=== PATIENT | female | born 1965 | race Caucasian/White ===

== ENCOUNTER 2016-03-10 16:13 | Outpatient (CLI) | payer MEDICARE, OTHER ==
[2015-02-24 14:12] VITALS: BP 162/71
[2016-03-10 16:39] LABS: APPEARANCE,URINE Cloudy (CLEAR); COLOR,URINE Yellow (YELLOW); OCCULT BLOOD,URINE 1+ (NEGATIVE); PH URINE 5.5 (5.0 - 8.0); UROBILINOGEN URINE 0.2 Eu (0.2-1.0)
== END 2016-03-10 16:14 ==
LOC: LAB 16:13
PROVIDERS: ATTEND Family Medicine
DX: N39.0 Urinary tract infection, site not specified (principal)
CPT/HCPCS: 81002; 87088; 87186

== ENCOUNTER 2016-03-25 16:06 | Outpatient (CLI) | payer MEDICARE, OTHER ==
[2015-02-24 14:12] VITALS: BP 162/71
== END 2016-03-25 16:07 ==
LOC: LABRHC 16:06
PROVIDERS: ATTEND Family Medicine
DX: Z51.81 Encounter for therapeutic drug level monitoring (principal); E11.9 Type 2 diabetes mellitus without complications
CPT/HCPCS: 80048; 83036

== ENCOUNTER 2016-05-29 10:17 | Outpatient (CLI) | payer MEDICARE, OTHER ==
[2015-02-24 14:12] VITALS: BP 162/71
[2016-05-29 10:31] LABS: APPEARANCE,URINE Clear (CLEAR); COLOR,URINE Yellow (YELLOW); OCCULT BLOOD,URINE Trace-intact (NEGATIVE)
== END 2016-05-29 10:18 ==
LOC: LABRHC 10:17
PROVIDERS: ATTEND Family Medicine
DX: R30.0 Dysuria (principal)
CPT/HCPCS: 81002; 87086; 87186

== ENCOUNTER 2016-08-02 12:01 | Outpatient (CLI) | payer MEDICARE, OTHER ==
[2015-02-24 14:12] VITALS: BP 162/71
== END 2016-08-02 12:10 ==
LOC: LABRHC 12:01
PROVIDERS: ATTEND Family Medicine
DX: N39.0 Urinary tract infection, site not specified (principal)
CPT/HCPCS: 87086; 87186

== ENCOUNTER 2016-11-06 16:19 | Outpatient (CLI) | payer OTHER ==
[2015-02-24 14:12] VITALS: BP 162/71
== END 2016-11-06 16:20 ==
LOC: LABRHC 16:19
PROVIDERS: ATTEND Family Medicine
DX: E11.9 Type 2 diabetes mellitus without complications (principal)
CPT/HCPCS: 83036; 87086

== ENCOUNTER 2017-02-15 14:32 | Outpatient (CLI) | payer OTHER ==
[2017-02-02 11:07] VITALS: BP 114/74
[2017-02-17 10:46] LABS: APPEARANCE,URINE Clear (CLEAR); COLOR,URINE Yellow (YELLOW); OCCULT BLOOD,URINE Trace-intact (NEGATIVE); PH URINE 5.5 (5.0 - 8.0); UROBILINOGEN URINE 0.2 Eu (0.2-1.0)
[2017-02-17 10:54] LABS: AMORPHOUS SEDIMENT,UR FEW (NEGATIVE)
== END 2017-02-15 14:33 ==
LOC: LAB 14:32
PROVIDERS: ATTEND Physician Assistant
DX: N39.0 Urinary tract infection, site not specified (principal)
CPT/HCPCS: 81002; 87086; 87186

== ENCOUNTER 2017-04-04 10:48 | Outpatient (CLI) | payer OTHER ==
[2017-02-02 11:07] VITALS: BP 114/74
== END 2017-04-04 10:50 ==
LOC: LAB 10:48
PROVIDERS: ATTEND Family Medicine
DX: E03.9 Hypothyroidism, unspecified (principal); E11.9 Type 2 diabetes mellitus without complications
CPT/HCPCS: 83036; 84443

== ENCOUNTER 2017-04-15 12:25 | Outpatient (CLI) | payer OTHER ==
[2017-02-02 11:07] VITALS: BP 114/74
[2017-04-15 12:34] LABS: APPEARANCE,URINE Cloudy (CLEAR); COLOR,URINE Yellow (YELLOW); OCCULT BLOOD,URINE Trace-lysed (NEGATIVE); UROBILINOGEN URINE 0.2 Eu (0.2-1.0)
== END 2017-04-15 12:35 ==
LOC: LAB 12:25
PROVIDERS: ATTEND Family Medicine
DX: N39.0 Urinary tract infection, site not specified (principal)
CPT/HCPCS: 81002; 87086

== ENCOUNTER 2017-06-06 16:56 | Outpatient (CLI) | payer OTHER ==
[2017-02-02 11:07] VITALS: BP 114/74
== END 2017-06-06 16:58 ==
LOC: LABRHC 16:56
PROVIDERS: ATTEND Family Medicine
DX: R21 Rash and other nonspecific skin eruption (principal); N39.0 Urinary tract infection, site not specified; L40.9 Psoriasis, unspecified
CPT/HCPCS: 87086; 87186

== ENCOUNTER 2017-10-03 14:57 | Outpatient (CLI) | payer MEDICARE, OTHER ==
[2017-02-02 11:07] VITALS: BP 114/74
[2017-10-03 15:14] LABS: BASOPHILS % 0.8 (0.0-1.5); EOSINOPHILS % 2.4 % (0.0-6.8); MEAN CORPUSCULAR HEMOGLOBIN 29.7 pg (28.0-34.0); MEAN CORPUSCULAR VOLUME 93.9 fl (80.0-100.0); MONOCYTES % 4.2 % (0.0-11.0); NEUTROPHILS # 7.6 # k/uL (1.4-7.7)
[2017-10-03 15:42] LABS: eGFR (African) > 60; eGFR (Non-African) > 60
--- NOTE | 2017-10-03 19:46 | Diagnostic Imaging Report ---
ROBERT ALVARES [facility] [address] [facility] [address] [id number] Report Submission Date: Oct 03, 2017 3:39:11 PM CDT Patient Study Name: MAURY TONEY Date: Oct 03, 2017 3:06:20 PM CDT Modality Type: DX Gender: F Description: CHEST : 63 Institution: [facility] Physician: ROBERT ALVARES Examination: PA and lateral chest. History: CXR, COUGH, DYSPNEA ON EXERTION FOR ABOUT A WEEK, PT STATES COPD, SMOKER (Hx) Comparison exam: None provided. Findings: PA and lateral views of the chest demonstrates a normal cardiac and mediastinal silhouette. Left greater than right parenchymal infiltrates. Minimal blunting of the right costophrenic margin and posterior sulci. Osseous articular degenerative changes. Impression: Left greater than right basilar infiltrates with right base effusion. Electronically signed on Oct 03, 2017 3:39:11 PM CDT by: Cordell NAVARRO
== END 2017-10-03 15:02 | disposition home or self-care (01) ==
LOC: LAB 14:57
PROVIDERS: ATTEND Family Medicine
DX: N39.0 Urinary tract infection, site not specified (principal); I10 Essential (primary) hypertension; E11.9 Type 2 diabetes mellitus without complications; J20.9 Acute bronchitis, unspecified
CPT/HCPCS: 71046; 80053; 83036; 85025

== ENCOUNTER 2017-10-17 14:48 | Outpatient (CLI) | payer MEDICARE, OTHER ==
[2017-02-02 11:07] VITALS: BP 114/74
[2017-10-17 16:34] LABS: BASOPHILS % 0.7 (0.0-1.5); EOSINOPHILS % 2.1 % (0.0-6.8); MEAN CORPUSCULAR HEMOGLOBIN 28.8 pg (28.0-34.0); MEAN CORPUSCULAR VOLUME 89.8 fl (80.0-100.0); MONOCYTES % 4.3 % (0.0-11.0); NEUTROPHILS # 7.9 # k/uL (1.4-7.7)
--- NOTE | 2017-10-17 18:35 | Diagnostic Imaging Report ---
ROBERT ALVARES [facility] [address] [facility] [address] [place] [address]. [id number] Report Submission Date: Oct 17, 2017 3:40:10 PM CDT Patient Study Name: MAURY TONEY Date: Oct 17, 2017 2:55:29 PM CDT Modality Type: DX Gender: F Description: CHEST : 63 Institution: [facility] Physician: ROBERT ALVARES PA and lateral chest History: Cough. Pneumonia PA and lateral chest dated October 17, 2017 is compared with October 03, 2017. Persisting areas of atelectasis and/or mild infiltrate are present at the mid right lung and in the lingula. Heart size is unchanged. There is possibly a quite small right pleural effusion. There is mildly improved aeration at the lung bases compared with the prior study. Impression: Mildly improved aeration at the lung bases but there are persisting regions of atelectasis and/or infiltrate bilaterally when compared with October 03, 2017. Electronically signed on Oct 17, 2017 3:40:10 PM CDT by: Eryn NAVARRO
== END 2017-10-17 15:10 ==
LOC: RAD 14:48
PROVIDERS: ATTEND Family Medicine
DX: J18.1 Lobar pneumonia, unspecified organism (principal)
CPT/HCPCS: 71046; 85025

== ENCOUNTER 2017-11-07 14:36 | Outpatient (CLI) | payer MEDICARE, OTHER ==
[2017-02-02 11:07] VITALS: BP 114/74
--- NOTE | 2017-11-07 17:13 | Diagnostic Imaging Report ---
ROBB CASTELLON [facility] [address] [facility] [address] [address] Report Submission Date: Nov 07, 2017 3:02:41 PM CDT Patient Study Name: MAURY TONEY Date: Nov 07, 2017 2:40:14 PM CDT Modality Type: DX Gender: F Description: CHEST : 63 Institution: [facility] Physician: ROBB CASTELLON Examination: PA and lateral chest. History: Evaluate lung wyatt. COUGH/SOA X1 MONTH RECENT PNEUMONIA PRIOR CXR 10/17/2017 (Hx) Comparison exam: 17 October 2017 Findings: PA and lateral views of the chest demonstrates a normal cardiac and mediastinal silhouette. Diffuse bilateral parenchymal haziness though improved from previous examination. No blunting of the costophrenic margins. Osseous structures are appropriate for age. Impression: Improved parenchymal haziness. No effusion. Electronically signed on Nov 07, 2017 3:02:41 PM CDT by: Cordell NAVARRO
== END 2017-11-07 14:38 ==
LOC: RAD 14:36
PROVIDERS: ATTEND Physician Assistant
DX: R06.2 Wheezing (principal); J18.9 Pneumonia, unspecified organism
CPT/HCPCS: 71046

== ENCOUNTER 2017-11-07 16:55 | Outpatient (CLI) | payer MEDICARE, OTHER ==
[2017-02-02 11:07] VITALS: BP 114/74
== END 2017-11-07 16:56 ==
LOC: LABRHC 16:55
PROVIDERS: ATTEND Physician Assistant
DX: R30.0 Dysuria (principal)
CPT/HCPCS: 87086

== ENCOUNTER 2017-11-27 09:12 | Outpatient (CLI) | payer MEDICARE, OTHER ==
[2017-02-02 11:07] VITALS: BP 114/74
== END 2017-11-27 09:13 ==
LOC: LAB 09:12
PROVIDERS: ATTEND Family Medicine
DX: R30.0 Dysuria (principal)
CPT/HCPCS: 87086

== ENCOUNTER 2017-12-16 11:16 | Outpatient (CLI) | payer MEDICARE, OTHER ==
[2017-02-02 11:07] VITALS: BP 114/74
[2017-12-16 11:56] LABS: eGFR (Non-African) > 60
--- NOTE | 2017-12-16 18:09 | Diagnostic Imaging Report ---
ROBERT ALVARES [facility] [address] [facility] [address] [place] [address]. [address] Report Submission Date: Dec 16, 2017 6:07:52 PM PLASTER TENDER Patient Study Name: MAURY TONEY Date: Dec 16, 2017 12:14:51 PM PLASTER TENDER Modality Type: CT\SR Gender: F Description: CT CHEST W/ CONTRAST : 63 Institution: [facility] Physician: ROBERT ALVARES CT chest with contrast History: Hemoptysis. History of COPD. Pneumonia. Smoker. Technique: Helically acquired images were obtained through the chest without IV contrast. Findings: A poor inspiration was achieved. Diffuse areas of ground-glass attenuation are present throughout the lungs bilaterally. There are additionally streaky and linear densities at the mid and lower lungs bilaterally, more so on the left than right, consistent with subsegmental atelectasis. The heart is borderline to mildly enlarged. Coronary artery calcifications are present. Therefore, these diffuse ground glass opacities throughout the lungs bilaterally may relate to congestive failure. However, there is no pleural effusion. There is a small amount of fluid within the superior pericardium. The thoracic aorta is normal in caliber. There is no mediastinal or hilar lymphadenopathy. The spleen is not imaged in its entirety but does appear to be enlarged. Adrenal glands are normal. No osseous abnormalities are noted. Impression: The heart is borderline to mildly enlarged. Coronary artery calcifications are present. There is a small amount of fluid within the superior pericardium. There is no pleural effusion. Streaky linear areas of parenchymal density are present at the lung bases bilaterally, left more than right, consistent with subsegmental atelectasis. Diffuse bilateral ground-glass opacities are present. Given the cardiac findings, these findings may represent cardiogenic edema. Differential considerations would include noncardiogenic pulmonary edema and ARDS. Additionally, unusual opportunistic infection such as CMV and PCP could generate a similar appearance. However, multiple chronic interstitial lung diseases could also generate a similar appearance. Therefore, diffuse ground-glass attenuation is nonspecific. Follow-up chest CT would ultimately be recommended to ensure complete resolution of these findings in this high risk patient. The spleen is not imaged in its entirety but does appear to be enlarged. Electronically signed on Dec 16, 2017 6:07:52 PM PLASTER TENDER by: Eryn NAVARRO
== END 2017-12-16 11:17 ==
LOC: RAD 11:16
PROVIDERS: ATTEND Family Medicine
DX: R04.2 Hemoptysis (principal); I10 Essential (primary) hypertension
CPT/HCPCS: 36415; 71260; 80053; Q9967

== ENCOUNTER 2018-02-16 07:08 | Outpatient (CLI) | payer MEDICARE, OTHER ==
[2017-02-02 11:07] VITALS: BP 114/74
== END 2018-02-16 07:10 ==
LOC: LABRHC 07:08
PROVIDERS: ATTEND Family Medicine
DX: N39.0 Urinary tract infection, site not specified (principal)
CPT/HCPCS: 87086

== ENCOUNTER 2018-03-17 14:57 | Inpatient (IN) | payer MEDICARE, OTHER ==
[2018-03-17 15:54] VITALS: BMI 47.8
[2018-03-17] MEDS ORDERED: LORazepam 0.5 MG TABLET PO PRN (16:35)
[2018-03-17] MEDS ORDERED: ALBUTEROL 90MCG/PUFF INHALER IH PRN (16:35)
--- NOTE | 2018-03-17 17:43 | History and Physical Report ---
History of Present Illnes - History of Present Illness Reason for Visit: Respiratory failure History of Present Illness: This is a 53 year old female well known to myself who is transferred to our facility for skilled care after a stay at [facility]. She was admitted with respiratory failure on 03/03/18, and had to be placed on BIPAP.. She had a chest tube placed in the ER which did not return much fluid. As a result, a CT was done, which showed a large loculated effusion. She then had streptokinase and dornase infused through her chest tube to break up the loculations. Her chest tube began to drain then, however that tube became kinked, and she she was taken to interventional radiology on 03/11 where another chest tube was placed. This tube functioned well and was discontinued the day before arrival here. She was initially started on broad spectrum antibiotics ([place] ncomycin/Aztreonam/Azithromycin), but cultures grew out MSSA and she was transitioned to nafcillin and then to oral Bactrim on the day before discharge. She is admitted to our facility for ongoing therapy with a view to returning to her home on discharge. She has vowed not to resume smoking on discharge. - Past Medical History Cardiac: CHF, HTN, Hyperlipidemia Pulmonary: Asthma, COPD, Pneumonia SHOE PULLER: Peripheral neuropathy Gastrointestinal: Constipation, GERD Heme/Onc: Anemia NOS, B12 deficiency Hepatobiliary: denies: Cirrhosis Psych: Anxiety, Addictions (History of methamphetamine abuse), Bipolar, Depr ession Musculoskeletal: Chronic low back pain, Osteoarthritis Endocrine: Diabetes Dermatology: Cellulitis - Past Surgical History Past Surgical History: Appendectomy, Cholecystectomy, Other (Right below knee amputation, full dental exctraction, facial reconstruction) - Past Social History Smoke: 2 packs per day (but quit on hospitalization) Occupation: Disabled Alcohol: None (But has history of heavy alcohol use) Drugs: None Lives: Alone Domestic Violence: Negative - Health Maintenance Health Maintenance: Cholesterol Influenza Vaccine: Current for this Influenza Season Pneumonia Vaccine: Yes Resuscitation Status: Resusciation Status Resuscitation Status Full Code - Unable to Obtain History Unable to Obtain: No Review of Systems - Review of Systems Constitutional: negative: Fever, Chills Eyes: negative: pain ENT: negative: Ear Pain, Ear Discharge Respiratory: Cough, Dry, Shortness of Breath, SOB with Excertion. negative: Hemoptysis Cardiovascular: negative: Chest Pain Gastrointestinal: negative: Nausea, Vomiting Genitourinary: negative: Dysuria, Frequency Musculoskeletal: negative: Neck Pain Skin: negative: Rash Neurological: Weakness, Other (Ataxia, complicated by BKA) - Medications/Allergies Allergies/Adverse Reactions: Allergies Allergy/AdvReac Type Severity Reaction Status Date / Time cephalexin monohydrate Allergy Intermediate Hives Verified 02/24/15 12:33 [From Keflex] oxycodone HCl [From Percocet] Allergy Intermediate Itchy Skin Verified 02/24/15 12:33 Current Inpatient Medications: Current Inpatient Medications Albuterol Sulfate (Ventolin Hfa) 2 puff IH PRN PRN PRN Reason: Bronchodialation Aspirin (Aspirin) 81 mg PO DAILY [facility] Buspirone HCl (Buspar) 20 mg PO BID [facility] Cyclobenzaprine HCl (Flexeril) 10 mg PO BID [facility] Docusate Sodium (Colace) 100 mg PO BID [facility] Enoxaparin Sodium (Lovenox) 30 mg SQ QD [facility] Stop: 03/30/18 17:01 Fluoxetine HCl (Prozac) 40 mg PO DAILY [facility] Furosemide (Lasix) 40 mg PO 714 [facility] Hydroxyzine HCl (Atarax) 50 mg PO HS [facility] Ibuprofen (Advil) 400 mg PO Q6H PRN PRN Reason: PAIN OR TEMPERATURE > 101 Insulin Glargine (Basaglar Kwik-Pen) 35 unit SQ HS [facility] Insulin Human Lispro (Humalog) 0 unit SQ CHEMQID [facility]; Protocol Lamotrigine (Lamictal) 200 mg PO BID [facility] Levothyroxine Sodium (Synthroid) 75 mcg PO 0700 [facility] Lorazepam (Ativan) 0.5 mg PO Q6H PRN PRN Reason: Anxiety Miscellaneous (Non Form) 1 each PO DAILY [facility] Multivitamins (Tab-A-Polo) 1 each PO DAILY [facility] Ondansetron HCl (Zofran Odt) 4 mg PO Q6H PRN PRN Reason: Nausea / Vomiting Pramipexole Dihydrochloride (Mirapex) 0.5 mg PO TID [facility] Fluticasone/Salmeterol (Advair 250-50 Diskus) 1 each IH BID [facility] Senna/Docusate Sodium (Senna Plus Tablet) 1 each PO DAILY [facility] Simvastatin (Zocor) 20 mg PO HS [facility] Trazodone HCl (Desyrel) 300 mg PO HS [facility] Trimethoprim/Sulfamethoxazole (Bactrim Ds) 1 each PO BID [facility] Stop: 03/30/18 20:59 Exam - Exam Vital Signs: Vital Signs (72 hours) 03/17/18 03/17/18 15:47 15:54 Temperature 97.2 F L 97.2 F L Pulse Rate [ 88 88 Left] Respiratory 18 18 Rate Blood Pressure 153/59 153/59 [Right Arm] O2 Sat by Pulse 97 97 Oximetry General: Alert, Oriented to Person, Oriented to Place, Obese HEENT: Atraumatic, PERRLA, EOMI, Edentulous, Decreased Hearing Acuity (left ear) Neck: No: Stridor, Rigidity Lungs: Clear to auscultation, Decreased Air Movement Cardiovascular: Regular rate Murmur: Systolic Murmur Murmur Location: Left Sternal Boarder Heart Murmur Grade: II Abdomen: Normal bowel sounds, Soft, No tenderness, Other (Scars from ELC) Genitourinary: No: Other Male Genitourinary: No: Other Female Genitourinary: No: Other Integumentary: Normal, [place], Warm Extremities: Other (rigth BKA) Neurological: Normal speech Psych/Mental Status: Mental status NL Assessment/Plan - Assessment/Plan (1) Pneumonia Status: Acute Current Visit: Yes Qualifiers: Pneumonia type: due to methicillin-sensitive Staphylococcus aureus (MSSA) Laterality: left Lung location: lower lobe of lung Qualified Code(s): J15.211 - Pneumonia due to Methicillin susceptible Staphylococcus aureus Assessment: Finish Bactrim (2) CHF (congestive heart failure) Status: Acute Current Visit: No Qualifiers: Qualified Code(s): I50.9 - Heart failure, unspecified Assessment: Chronic, systolic Plan: Continue current dose of lasix Check labs (3) Chronic obstructive lung disease Status: Acute Current Visit: No Assessment: Advair Will write PRN duonebs Encourage abstinence from smoking (4) Diabetes mellitus type 2 Status: Acute Current Visit: No Assessment: Levemir and humalog are ordered VTE Assessment - RISK FACTOR SCORE VTE RISK FACTOR SCORES: AGE 40-60 YEARS, ACUTE RESPIRATORY FAILURE/SEVERE COPD - RISK VTE MODERATE RISK: SCORE OF 2 (RISK PROXIMAL DVT 2-4%) PROPHYAXIS NEEDED (On Lovenox)
[2018-03-17] MEDS: INSULIN LISPRO 100 UNIT/ML 3ML VIAL SQ SCH ×2 (18:43→21:37)
[2018-03-17] MEDS: ENOXAPARIN SODIUM 30 MG/0.3 ML DISP.SYRIN SQ SCH (18:46)
[2018-03-17] MEDS: PRAMIPEXOLE DI-HCL 0.5 MG TABLET PO SCH (18:47)
[2018-03-17] MEDS: traMADol HCL 50 MG TABLET PO SCH ×2 (18:47→23:57)
[2018-03-17] MEDS: INSULIN GLARGINE,HUM.REC.ANLOG 100 UNIT/ML PEN.INJCTR SQ SCH (21:40)
[2018-03-17] MEDS: IBUPROFEN 400 MG TABLET PO PRN (21:43)
[2018-03-17] MEDS: BUSPIRONE HCL 5 MG TABLET PO SCH (21:47)
[2018-03-17] MEDS: SIMVASTATIN 20 MG TABLET PO SCH (21:48)
[2018-03-17] MEDS: LAMOTRIGINE 100 MG TABLET PO SCH (21:48)
[2018-03-17] MEDS: HYDROXYZINE HCL 25 MG TABLET PO SCH (21:48)
[2018-03-17] MEDS: traZODone HCL 50 MG TABLET PO SCH (21:49)
[2018-03-17] MEDS: SULFAMETHOXAZOLE/TRIMETHOPRIM 800/160MG TAB PO SCH (21:49)
[2018-03-17] MEDS: CYCLOBENZAPRINE HCL 10 MG TABLET PO SCH (21:49)
[2018-03-17] MEDS: DOCUSATE SODIUM 100 MG/10 ML S/F LIQUID PO SCH (21:50)
[2018-03-17] MEDS: FLUTICASONE/SALMETEROL 250-50 INHALER IH SCH (21:51)
[2018-03-18] MEDS: traMADol HCL 50 MG TABLET PO SCH ×4 (06:19→23:55)
[2018-03-18] MEDS: FUROSEMIDE 40 MG TABLET PO SCH ×2 (06:19→14:20)
[2018-03-18] MEDS: LEVOTHYROXINE SODIUM 25 MCG TABLET PO SCH (06:21)
[2018-03-18] MEDS: INSULIN LISPRO 100 UNIT/ML 3ML VIAL SQ SCH ×4 (07:19→20:44)
[2018-03-18 08:28] LABS: BASOPHILS % 0.4 (0.0-1.5); EOSINOPHILS % 5.5 % (0.0-6.8); NEUTROPHILS # 3.8 # k/uL (1.4-7.7)
[2018-03-18] MEDS: PRAMIPEXOLE DI-HCL 0.5 MG TABLET PO SCH ×3 (08:40→18:06)
[2018-03-18] MEDS: SULFAMETHOXAZOLE/TRIMETHOPRIM 800/160MG TAB PO SCH ×2 (08:41→20:40)
[2018-03-18] MEDS: FLUTICASONE/SALMETEROL 250-50 INHALER IH SCH ×2 (08:41→20:39)
[2018-03-18] MEDS: BUSPIRONE HCL 5 MG TABLET PO SCH ×2 (08:41→20:40)
[2018-03-18] MEDS: CYCLOBENZAPRINE HCL 10 MG TABLET PO SCH ×2 (08:42→20:40)
[2018-03-18] MEDS: DOCUSATE SODIUM 100 MG/10 ML S/F LIQUID PO SCH ×2 (08:42→20:40)
[2018-03-18] MEDS: LAMOTRIGINE 100 MG TABLET PO SCH ×2 (08:42→20:40)
[2018-03-18] MEDS: ASPIRIN 81 MG CHEW TAB PO SCH (08:42)
[2018-03-18] MEDS: FLUoxetine HCL 10 MG CAPSULE PO SCH (08:42)
[2018-03-18] MEDS: SENNOSIDES/DOCUSATE 8.6/50 MG 1 EACH TABLET PO SCH (08:43)
[2018-03-18] MEDS: MULTIVITAMIN 1 EACH TABLET PO SCH (08:43)
[2018-03-18 08:44] LABS: eGFR (Non-African) > 60
[2018-03-18] MEDS: Non-Formulary 1 EACH PO SCH (16:20)
[2018-03-18] MEDS: ENOXAPARIN SODIUM 30 MG/0.3 ML DISP.SYRIN SQ SCH (16:29)
[2018-03-18] MEDS: IBUPROFEN 400 MG TABLET PO PRN ×2 (18:09→23:55)
[2018-03-18] MEDS: SIMVASTATIN 20 MG TABLET PO SCH (20:40)
[2018-03-18] MEDS: HYDROXYZINE HCL 25 MG TABLET PO SCH (20:41)
[2018-03-18] MEDS: traZODone HCL 50 MG TABLET PO SCH (20:41)
[2018-03-18] MEDS: INSULIN GLARGINE,HUM.REC.ANLOG 100 UNIT/ML PEN.INJCTR SQ SCH (20:47)
[2018-03-19] MEDS: traMADol HCL 50 MG TABLET PO SCH ×3 (05:33→17:09)
[2018-03-19] MEDS: LEVOTHYROXINE SODIUM 25 MCG TABLET PO SCH (05:34)
[2018-03-19] MEDS: FUROSEMIDE 40 MG TABLET PO SCH ×2 (05:34→12:11)
[2018-03-19] MEDS: FLUTICASONE/SALMETEROL 250-50 INHALER IH SCH ×2 (08:25→20:54)
[2018-03-19] MEDS: DOCUSATE SODIUM 100 MG/10 ML S/F LIQUID PO SCH (08:25)
[2018-03-19] MEDS: INSULIN LISPRO 100 UNIT/ML 3ML VIAL SQ SCH ×4 (08:26→20:58)
[2018-03-19] MEDS: FLUoxetine HCL 10 MG CAPSULE PO SCH (08:29)
[2018-03-19] MEDS: BUSPIRONE HCL 5 MG TABLET PO SCH ×2 (08:29→21:02)
[2018-03-19] MEDS: ASPIRIN 81 MG CHEW TAB PO SCH (08:30)
[2018-03-19] MEDS: MULTIVITAMIN 1 EACH TABLET PO SCH (08:30)
[2018-03-19] MEDS: PRAMIPEXOLE DI-HCL 0.5 MG TABLET PO SCH ×3 (08:30→17:09)
[2018-03-19] MEDS: SULFAMETHOXAZOLE/TRIMETHOPRIM 800/160MG TAB PO SCH ×2 (08:30→21:01)
[2018-03-19] MEDS: CYCLOBENZAPRINE HCL 10 MG TABLET PO SCH ×2 (08:31→21:01)
[2018-03-19] MEDS: SENNOSIDES/DOCUSATE 8.6/50 MG 1 EACH TABLET PO SCH (08:31)
[2018-03-19] MEDS: LAMOTRIGINE 100 MG TABLET PO SCH ×2 (08:31→21:02)
[2018-03-19] MEDS: IBUPROFEN 400 MG TABLET PO PRN ×2 (12:13→21:02)
[2018-03-19] MEDS: Non-Formulary 1 EACH PO SCH ×2 (13:31→13:33)
[2018-03-19] MEDS: ENOXAPARIN SODIUM 30 MG/0.3 ML DISP.SYRIN SQ SCH (17:09)
[2018-03-19] MEDS: INSULIN GLARGINE,HUM.REC.ANLOG 100 UNIT/ML PEN.INJCTR SQ SCH (20:59)
[2018-03-19] MEDS: SIMVASTATIN 20 MG TABLET PO SCH (21:01)
[2018-03-19] MEDS: HYDROXYZINE HCL 25 MG TABLET PO SCH (21:01)
[2018-03-19] MEDS: traZODone HCL 50 MG TABLET PO SCH (21:02)
[2018-03-20] MEDS: traMADol HCL 50 MG TABLET PO SCH ×5 (00:04→23:43)
[2018-03-20] MEDS: IBUPROFEN 400 MG TABLET PO PRN (03:57)
[2018-03-20] MEDS: FUROSEMIDE 40 MG TABLET PO SCH ×2 (06:08→14:02)
[2018-03-20] MEDS: LEVOTHYROXINE SODIUM 25 MCG TABLET PO SCH (06:08)
[2018-03-20] MEDS: FLUTICASONE/SALMETEROL 250-50 INHALER IH SCH ×2 (08:49→20:31)
[2018-03-20] MEDS: INSULIN LISPRO 100 UNIT/ML 3ML VIAL SQ SCH ×4 (08:51→20:48)
[2018-03-20] MEDS: SULFAMETHOXAZOLE/TRIMETHOPRIM 800/160MG TAB PO SCH ×2 (08:52→20:31)
[2018-03-20] MEDS: ASPIRIN 81 MG CHEW TAB PO SCH (08:52)
[2018-03-20] MEDS: PRAMIPEXOLE DI-HCL 0.5 MG TABLET PO SCH ×3 (08:52→17:18)
[2018-03-20] MEDS: BUSPIRONE HCL 5 MG TABLET PO SCH ×2 (08:52→20:32)
[2018-03-20] MEDS: SENNOSIDES/DOCUSATE 8.6/50 MG 1 EACH TABLET PO SCH (08:52)
[2018-03-20] MEDS: FLUoxetine HCL 10 MG CAPSULE PO SCH (08:52)
[2018-03-20] MEDS: LAMOTRIGINE 100 MG TABLET PO SCH ×2 (08:52→20:32)
[2018-03-20] MEDS: CYCLOBENZAPRINE HCL 10 MG TABLET PO SCH ×2 (08:52→20:32)
[2018-03-20] MEDS: MULTIVITAMIN 1 EACH TABLET PO SCH (08:52)
[2018-03-20] MEDS: Non-Formulary 1 EACH PO SCH (08:53)
[2018-03-20] MEDS ORDERED: INSULIN LISPRO 100 UNIT/ML 3ML VIAL SQ ONE (11:43)
[2018-03-20] MEDS: ONDANSETRON HCL 4 MG TAB.RAPDIS PO PRN (16:55)
[2018-03-20] MEDS: ENOXAPARIN SODIUM 30 MG/0.3 ML DISP.SYRIN SQ SCH (17:18)
[2018-03-20] MEDS: HYDROXYZINE HCL 25 MG TABLET PO SCH (20:31)
[2018-03-20] MEDS: SIMVASTATIN 20 MG TABLET PO SCH (20:33)
[2018-03-20] MEDS: traZODone HCL 50 MG TABLET PO SCH (20:45)
[2018-03-20] MEDS: INSULIN GLARGINE,HUM.REC.ANLOG 100 UNIT/ML PEN.INJCTR SQ SCH (20:46)
[2018-03-21] MEDS: traMADol HCL 50 MG TABLET PO SCH ×3 (06:01→17:56)
[2018-03-21] MEDS: FUROSEMIDE 40 MG TABLET PO SCH ×2 (06:01→14:58)
[2018-03-21] MEDS: LEVOTHYROXINE SODIUM 25 MCG TABLET PO SCH (06:02)
[2018-03-21] MEDS: INSULIN LISPRO 100 UNIT/ML 3ML VIAL SQ SCH ×4 (07:48→20:53)
[2018-03-21] MEDS: PRAMIPEXOLE DI-HCL 0.5 MG TABLET PO SCH ×3 (09:07→17:56)
[2018-03-21] MEDS: FLUTICASONE/SALMETEROL 250-50 INHALER IH SCH ×2 (09:08→20:57)
[2018-03-21] MEDS: BUSPIRONE HCL 5 MG TABLET PO SCH ×2 (09:08→20:43)
[2018-03-21] MEDS: SULFAMETHOXAZOLE/TRIMETHOPRIM 800/160MG TAB PO SCH ×2 (09:08→20:42)
[2018-03-21] MEDS: LAMOTRIGINE 100 MG TABLET PO SCH ×2 (09:09→20:42)
[2018-03-21] MEDS: CYCLOBENZAPRINE HCL 10 MG TABLET PO SCH ×2 (09:09→20:42)
[2018-03-21] MEDS: FLUoxetine HCL 10 MG CAPSULE PO SCH (09:09)
[2018-03-21] MEDS: Non-Formulary 1 EACH PO SCH (09:09)
[2018-03-21] MEDS: SENNOSIDES/DOCUSATE 8.6/50 MG 1 EACH TABLET PO SCH (09:09)
[2018-03-21] MEDS: ASPIRIN 81 MG CHEW TAB PO SCH (09:09)
[2018-03-21] MEDS: MULTIVITAMIN 1 EACH TABLET PO SCH (09:09)
[2018-03-21] MEDS: POLYETHYLENE GLYCOL 3350 17 GM POWD.PACK PO SCH (11:29)
[2018-03-21] MEDS: IBUPROFEN 400 MG TABLET PO PRN (12:13)
[2018-03-21] MEDS: ENOXAPARIN SODIUM 30 MG/0.3 ML DISP.SYRIN SQ SCH (17:56)
[2018-03-21] MEDS: SIMVASTATIN 20 MG TABLET PO SCH (20:42)
[2018-03-21] MEDS: HYDROXYZINE HCL 25 MG TABLET PO SCH (20:42)
[2018-03-21] MEDS: INSULIN GLARGINE,HUM.REC.ANLOG 100 UNIT/ML PEN.INJCTR SQ SCH (20:47)
[2018-03-21] MEDS: traZODone HCL 50 MG TABLET PO SCH (21:12)
[2018-03-21] MEDS: ONDANSETRON HCL 4 MG TAB.RAPDIS PO PRN (21:14)
[2018-03-22] MEDS: traMADol HCL 50 MG TABLET PO SCH ×5 (00:14→23:02)
[2018-03-22] MEDS: FUROSEMIDE 40 MG TABLET PO SCH ×2 (06:18→13:16)
[2018-03-22] MEDS: LEVOTHYROXINE SODIUM 25 MCG TABLET PO SCH (06:18)
[2018-03-22] MEDS: INSULIN LISPRO 100 UNIT/ML 3ML VIAL SQ SCH ×4 (07:40→20:45)
[2018-03-22] MEDS: ASPIRIN 81 MG CHEW TAB PO SCH (08:18)
[2018-03-22] MEDS: FLUTICASONE/SALMETEROL 250-50 INHALER IH SCH ×2 (08:18→20:38)
[2018-03-22] MEDS: SULFAMETHOXAZOLE/TRIMETHOPRIM 800/160MG TAB PO SCH ×2 (08:18→20:38)
[2018-03-22] MEDS: BUSPIRONE HCL 5 MG TABLET PO SCH ×2 (08:19→20:38)
[2018-03-22] MEDS: CYCLOBENZAPRINE HCL 10 MG TABLET PO SCH ×2 (08:19→20:38)
[2018-03-22] MEDS: FLUoxetine HCL 10 MG CAPSULE PO SCH (08:19)
[2018-03-22] MEDS: LAMOTRIGINE 100 MG TABLET PO SCH ×2 (08:19→20:38)
[2018-03-22] MEDS: PRAMIPEXOLE DI-HCL 0.5 MG TABLET PO SCH ×3 (08:19→18:07)
[2018-03-22] MEDS: SENNOSIDES/DOCUSATE 8.6/50 MG 1 EACH TABLET PO SCH (08:20)
[2018-03-22] MEDS: Non-Formulary 1 EACH PO SCH (08:21)
[2018-03-22] MEDS: MULTIVITAMIN 1 EACH TABLET PO SCH (09:37)
[2018-03-22] MEDS: POLYETHYLENE GLYCOL 3350 17 GM POWD.PACK PO SCH (11:39)
[2018-03-22] MEDS: ENOXAPARIN SODIUM 30 MG/0.3 ML DISP.SYRIN SQ SCH (17:48)
[2018-03-22] MEDS: HYDROXYZINE HCL 25 MG TABLET PO SCH (20:38)
[2018-03-22] MEDS: traZODone HCL 50 MG TABLET PO SCH (20:39)
[2018-03-22] MEDS: SIMVASTATIN 20 MG TABLET PO SCH (20:39)
[2018-03-22] MEDS: INSULIN GLARGINE,HUM.REC.ANLOG 100 UNIT/ML PEN.INJCTR SQ SCH (20:43)
[2018-03-23] MEDS: traMADol HCL 50 MG TABLET PO SCH ×3 (05:58→17:09)
[2018-03-23] MEDS: LEVOTHYROXINE SODIUM 25 MCG TABLET PO SCH (06:00)
[2018-03-23] MEDS: FUROSEMIDE 40 MG TABLET PO SCH ×2 (06:00→14:42)
[2018-03-23] MEDS: INSULIN LISPRO 100 UNIT/ML 3ML VIAL SQ SCH ×4 (07:20→20:51)
[2018-03-23] MEDS: FLUTICASONE/SALMETEROL 250-50 INHALER IH SCH ×2 (08:59→20:59)
[2018-03-23] MEDS: CYCLOBENZAPRINE HCL 10 MG TABLET PO SCH ×2 (09:00→20:58)
[2018-03-23] MEDS: ASPIRIN 81 MG CHEW TAB PO SCH (09:00)
[2018-03-23] MEDS: SULFAMETHOXAZOLE/TRIMETHOPRIM 800/160MG TAB PO SCH ×2 (09:00→20:58)
[2018-03-23] MEDS: PRAMIPEXOLE DI-HCL 0.5 MG TABLET PO SCH ×3 (09:00→17:09)
[2018-03-23] MEDS: FLUoxetine HCL 10 MG CAPSULE PO SCH (09:00)
[2018-03-23] MEDS: SENNOSIDES/DOCUSATE 8.6/50 MG 1 EACH TABLET PO SCH (09:00)
[2018-03-23] MEDS: BUSPIRONE HCL 5 MG TABLET PO SCH ×2 (09:00→20:58)
[2018-03-23] MEDS: MULTIVITAMIN 1 EACH TABLET PO SCH (09:01)
[2018-03-23] MEDS: Non-Formulary 1 EACH PO SCH (09:01)
[2018-03-23] MEDS: LAMOTRIGINE 100 MG TABLET PO SCH ×2 (09:01→20:58)
--- NOTE | 2018-03-23 09:17 | Inpatient Progress Note ---
Subjective - Required Recertification Statement I anticipate X number of days because-include discharge plan: 7 - Review of Systems Events since last encounter: Donya's blood sugar are still elevated in the 300 range most of the time. She denies that she is drinking any sugared drinks. She is participating in therapy and agains states her plan not to smoke any longer. General: Denies: Chills HEENT: Denies: Head Aches Pulmonary: Dyspnea. Denies: Cough Cardiovascular: Denies: Chest Pain Gastrointestinal: Denies: Nausea, Vomiting Genitourinary: Denies: Dysuria, Frequency Musculoskeletal: Denies: Neck Pain, Shoulder Pain Neurological: Denies: Weakness, Numbness Objective - Exam Vitals and I&O: Vital Signs Temp 96.9 F L 03/23/18 08:57 Pulse 83 03/23/18 08:57 Resp 18 03/23/18 08:57 BP 138/59 03/23/18 08:57 Pulse Ox 93 03/23/18 08:57 Intake & Output 03/22/18 03/22/18 03/23/18 11:59 23:59 11:59 Intake Total 480 840 480 Balance 480 840 480 Intake: Oral 480 840 480 Other: Voiding Method Bedside Commode Bedside Commode Bedside Commode # Voids 1 5 2 General: Alert, Oriented to Person, Oriented to Place, Oriented to Time, Obese HEENT: Atraumatic, PERRLA, EOMI, Edentulous Neck: Supple, No JVD Lungs: Clear to auscultation, Decreased Air Movement Cardiovascular: Regular rate, Other (Left chest tube site is healing. Silk suture is still in place) Abdomen: Soft Extremities: Other (Right BKA) Skin: Normal, [place], Warm, Dry Neurological: Normal speech Psych/Mental Status: Mental status NL - Results Results: Laboratory Results WBC 5.90 K/ul (4.00-12.00) 03/18/18 07:30 RBC 4.58 M/ul (3.90-5.20) 03/18/18 07:30 Hgb 13.3 g/dL (12.0-16.0) 03/18/18 07:30 Hct 41.9 % (34.5-46.5) 03/18/18 07:30 MCV 92.0 fl (80.0-100.0) 03/18/18 07:30 MCH 29.0 pg (28.0-34.0) 03/18/18 07:30 MCHC 31.7 g/dL (30.0-36.0) 03/18/18 07:30 RDW 14.7 % (11.3-14.3) H 03/18/18 07:30 Plt Count 310 K/mm3 (130-400) 03/18/18 07:30 Neut % (Auto) 64.2 % (39.0-79.0) 03/18/18 07:30 Lymph % (Auto) 23.9 % (16.0-50.0) 03/18/18 07:30 [place] % (Auto) 6.0 % (0.0-11.0) 03/18/18 07:30 Eos % (Auto) 5.5 % (0.0-6.8) 03/18/18 07:30 Baso % (Auto) 0.4 (0.0-1.5) 03/18/18 07:30 Neut # (Auto) 3.8 # k/uL (1.4-7.7) 03/18/18 07:30 Lymph # (Auto) 1.4 # k/uL (0.6-4.0) 03/18/18 07:30 [place]linger # (Auto) 0.4 # k/uL (0.0-0.9) 03/18/18 07:30 Eos # (Auto) 0.3 # k/uL (0.0-0.6) 03/18/18 07:30 Baso # (Auto) 0.0 # k/uL (0.0-0.5) 03/18/18 07:30 Sodium 138 mmol/L (136-145) 03/18/18 07:30 Potassium 4.4 mmol/L (3.5-5.1) 03/18/18 07:30 Chloride 95 mmol/L (98-107) L 03/18/18 07:30 Carbon Dioxide 35 mmol/L (22-30) H 03/18/18 07:30 BUN 8 mg/dL (7-17) 03/18/18 07:30 Creatinine 0.61 mg/dL (0.52-1.04) 03/18/18 07:30 Estimated Creat Clear 236 03/18/18 07:30 Est GFR ( Amer) > 60 (60-) 03/18/18 07:30 Est GFR (Non-Af Amer) > 60 (60-) 03/18/18 07:30 Glucose 249 mg/dL (74-106) H 03/18/18 07:30 Calcium 8.6 mg/dL (8.4-10.2) 03/18/18 07:30 Total Bilirubin 0.7 mg/dL (0.2-1.3) 03/18/18 07:30 AST 27 U/L (15-46) 03/18/18 07:30 ALT 19 U/L (13-69) 03/18/18 07:30 Alkaline Phosphatase 102 U/L (38-126) 03/18/18 07:30 Total Protein 7.1 g/dL (6.3-8.2) 03/18/18 07:30 Albumin 3.4 g/dL (3.5-5.0) L 03/18/18 07:30 Assessment/Plan - Assessment/Plan (1) Pneumonia Status: Acute Current Visit: Yes Qualifiers: Pneumonia type: due to methicillin-sensitive Staphylococcus aureus (MSSA) Laterality: left Lung location: lower lobe of lung Qualified Code(s): J15.211 - Pneumonia due to Methicillin susceptible Staphylococcus aureus Assessment: Finish Bactrim Continue current pulmonary medications (2) CHF (congestive heart failure) Status: Acute Current Visit: No Qualifiers: Qualified Code(s): I50.9 - Heart failure, unspecified Assessment: Stable, well compensated (3) Chronic obstructive lung disease Status: Acute Current Visit: No Assessment: Encouraged smoking cessation (4) Diabetes mellitus type 2 Status: Acute Current Visit: No Assessment: Increased Lantus to 55 units and advanced SSI
[2018-03-23] MEDS: POLYETHYLENE GLYCOL 3350 17 GM POWD.PACK PO SCH (10:30)
[2018-03-23] MEDS: ENOXAPARIN SODIUM 30 MG/0.3 ML DISP.SYRIN SQ SCH (17:09)
[2018-03-23] MEDS: INSULIN GLARGINE,HUM.REC.ANLOG 100 UNIT/ML PEN.INJCTR SQ SCH (20:55)
[2018-03-23] MEDS: HYDROXYZINE HCL 25 MG TABLET PO SCH (20:58)
[2018-03-23] MEDS: SIMVASTATIN 20 MG TABLET PO SCH (20:58)
[2018-03-23] MEDS ORDERED: PHARMACY KEY 1 EACH EACH MC ONE (21:18)
[2018-03-23] MEDS ORDERED: traZODone HCL 50 MG TABLET PO ONE (21:45)
[2018-03-23] MEDS: traZODone HCL 50 MG TABLET PO SCH (21:51)
[2018-03-24] MEDS: traMADol HCL 50 MG TABLET PO SCH ×4 (03:39→18:22)
[2018-03-24] MEDS: FUROSEMIDE 40 MG TABLET PO SCH ×2 (07:40→14:49)
[2018-03-24] MEDS: LEVOTHYROXINE SODIUM 25 MCG TABLET PO SCH (07:40)
[2018-03-24] MEDS: INSULIN LISPRO 100 UNIT/ML 3ML VIAL SQ SCH ×4 (07:45→21:21)
[2018-03-24] MEDS: ASPIRIN 81 MG CHEW TAB PO SCH (09:05)
[2018-03-24] MEDS: BUSPIRONE HCL 5 MG TABLET PO SCH ×2 (09:05→21:10)
[2018-03-24] MEDS: FLUTICASONE/SALMETEROL 250-50 INHALER IH SCH ×2 (09:05→21:09)
[2018-03-24] MEDS: SULFAMETHOXAZOLE/TRIMETHOPRIM 800/160MG TAB PO SCH ×2 (09:05→21:10)
[2018-03-24] MEDS: PRAMIPEXOLE DI-HCL 0.5 MG TABLET PO SCH ×3 (09:06→18:22)
[2018-03-24] MEDS: CYCLOBENZAPRINE HCL 10 MG TABLET PO SCH ×2 (09:06→21:11)
[2018-03-24] MEDS: Non-Formulary 1 EACH PO SCH (09:06)
[2018-03-24] MEDS: LAMOTRIGINE 100 MG TABLET PO SCH ×2 (09:06→21:11)
[2018-03-24] MEDS: SENNOSIDES/DOCUSATE 8.6/50 MG 1 EACH TABLET PO SCH (09:07)
[2018-03-24] MEDS: MULTIVITAMIN 1 EACH TABLET PO SCH (09:07)
[2018-03-24] MEDS: FLUoxetine HCL 10 MG CAPSULE PO SCH (09:07)
[2018-03-24] MEDS: POLYETHYLENE GLYCOL 3350 17 GM POWD.PACK PO SCH (11:12)
[2018-03-24] MEDS: ENOXAPARIN SODIUM 30 MG/0.3 ML DISP.SYRIN SQ SCH (16:15)
[2018-03-24] MEDS: HYDROXYZINE HCL 25 MG TABLET PO SCH (21:10)
[2018-03-24] MEDS: SIMVASTATIN 20 MG TABLET PO SCH (21:11)
[2018-03-24] MEDS: traZODone HCL 50 MG TABLET PO SCH (21:13)
[2018-03-24] MEDS: INSULIN GLARGINE,HUM.REC.ANLOG 100 UNIT/ML PEN.INJCTR SQ SCH (21:17)
[2018-03-25] MEDS: traMADol HCL 50 MG TABLET PO SCH ×5 (01:56→23:48)
[2018-03-25] MEDS: LEVOTHYROXINE SODIUM 25 MCG TABLET PO SCH (06:29)
[2018-03-25] MEDS: FUROSEMIDE 40 MG TABLET PO SCH ×2 (06:29→13:48)
[2018-03-25] MEDS: INSULIN LISPRO 100 UNIT/ML 3ML VIAL SQ SCH ×5 (07:34→21:47)
[2018-03-25] MEDS: FLUTICASONE/SALMETEROL 250-50 INHALER IH SCH ×2 (09:22→21:58)
[2018-03-25] MEDS: FLUoxetine HCL 10 MG CAPSULE PO SCH (09:23)
[2018-03-25] MEDS: BUSPIRONE HCL 5 MG TABLET PO SCH ×2 (09:23→21:57)
[2018-03-25] MEDS: PRAMIPEXOLE DI-HCL 0.5 MG TABLET PO SCH ×3 (09:23→17:39)
[2018-03-25] MEDS: CYCLOBENZAPRINE HCL 10 MG TABLET PO SCH ×2 (09:23→21:59)
[2018-03-25] MEDS: SULFAMETHOXAZOLE/TRIMETHOPRIM 800/160MG TAB PO SCH ×2 (09:23→22:01)
[2018-03-25] MEDS: LAMOTRIGINE 100 MG TABLET PO SCH ×2 (09:23→22:00)
[2018-03-25] MEDS: ASPIRIN 81 MG CHEW TAB PO SCH (09:23)
[2018-03-25] MEDS: SENNOSIDES/DOCUSATE 8.6/50 MG 1 EACH TABLET PO SCH (09:24)
[2018-03-25] MEDS: Non-Formulary 1 EACH PO SCH (09:24)
[2018-03-25] MEDS: MULTIVITAMIN 1 EACH TABLET PO SCH (09:48)
[2018-03-25] MEDS: POLYETHYLENE GLYCOL 3350 17 GM POWD.PACK PO SCH (10:15)
[2018-03-25] MEDS: ENOXAPARIN SODIUM 30 MG/0.3 ML DISP.SYRIN SQ SCH (17:29)
[2018-03-25] MEDS: INSULIN GLARGINE,HUM.REC.ANLOG 100 UNIT/ML PEN.INJCTR SQ SCH (21:44)
[2018-03-25] MEDS: BUSPIRONE HCL 15 MG TABLET PO SCH (21:57)
[2018-03-25] MEDS: SIMVASTATIN 20 MG TABLET PO SCH (21:59)
[2018-03-25] MEDS: traZODone HCL 50 MG TABLET PO SCH (22:01)
[2018-03-25] MEDS: HYDROXYZINE HCL 25 MG TABLET PO SCH (22:02)
[2018-03-26] MEDS: traMADol HCL 50 MG TABLET PO SCH (06:25)
[2018-03-26] MEDS: FUROSEMIDE 40 MG TABLET PO SCH (06:25)
[2018-03-26] MEDS: LEVOTHYROXINE SODIUM 25 MCG TABLET PO SCH (06:27)
[2018-03-26] MEDS: INSULIN LISPRO 100 UNIT/ML 3ML VIAL SQ SCH (07:11)
[2018-03-26] MEDS: FLUTICASONE/SALMETEROL 250-50 INHALER IH SCH (08:33)
[2018-03-26] MEDS: SULFAMETHOXAZOLE/TRIMETHOPRIM 800/160MG TAB PO SCH (08:34)
[2018-03-26] MEDS: ASPIRIN 81 MG CHEW TAB PO SCH (08:34)
[2018-03-26] MEDS: MULTIVITAMIN 1 EACH TABLET PO SCH (08:34)
[2018-03-26] MEDS: SENNOSIDES/DOCUSATE 8.6/50 MG 1 EACH TABLET PO SCH (08:34)
[2018-03-26] MEDS: CYCLOBENZAPRINE HCL 10 MG TABLET PO SCH (08:34)
[2018-03-26] MEDS: FLUoxetine HCL 10 MG CAPSULE PO SCH (08:34)
[2018-03-26] MEDS: LAMOTRIGINE 100 MG TABLET PO SCH (08:34)
[2018-03-26] MEDS: PRAMIPEXOLE DI-HCL 0.5 MG TABLET PO SCH (08:34)
[2018-03-26] MEDS: BUSPIRONE HCL 5 MG TABLET PO SCH (08:35)
[2018-03-26] MEDS: BUSPIRONE HCL 15 MG TABLET PO SCH (08:35)
[2018-03-26] MEDS: Non-Formulary 1 EACH PO SCH (08:36)
[2018-03-26 09:17] VITALS: BP 145/69
--- NOTE | 2018-04-07 10:59 | Discharge Summary ---
Discharge Summary - Discharge Sumary History of Present Illness: This is a 53 year old female well known to myself who is transferred to our facility for skilled care after a stay at [facility]. She was admitted with respiratory failure on 03/03/18, and had to be placed on BIPAP.. She had a chest tube placed in the ER which did not return much fluid. As a result, a CT was done, which showed a large loculated effusion. She then had streptokinase and dornase infused through her chest tube to break up the loculations. Her chest tube began to drain then, however that tube became kinked, and she she was taken to interventional radiology on 03/11 where another chest tube was placed. This tube functioned well and was discontinued the day before arrival here. She was initially started on broad spectrum antibiotics (Vancomycin/Aztreonam/Azithromycin), but cultures grew out MSSA and she was transitioned to nafcillin and then to oral Bactrim on the day before discharge to our facility. Home Medications: Ambulatory Orders Medication Instructions Recorded Aspirin [Aspir 81] 81 mg PO DAILY u2 05/15/15 Docusate Sodium [Colace] 100 mg PO BID 02/02/17 Albuterol Sulfate [Proair 90 mcg IH Q4 PRN 03/26/18 Respiclick] Fluoxetine HCl [Prozac] 40 mg PO BID 03/26/18 Hydroxyzine HCl 25 mg PO HS 03/26/18 Ibuprofen 400 mg PO Q6 PRN 03/26/18 LORazepam [Ativan] 0.5 mg PO QID PRN 03/26/18 Lamotrigine [Lamictal] 200 mg PO BID 03/26/18 Levothyroxine Sodium 75 mcg PO D 03/26/18 Lurasidone HCl [Latuda] 40 mg PO D 03/26/18 Ondansetron HCl Rapdis [Zofran ODT] 4 mg PO Q6H PRN 03/26/18 Pantoprazole Sodium 40 mg PO BID 03/26/18 Pramipexole Di-HCl [Mirapex] 0.5 mg PO TID 03/26/18 Simvastatin 20 mg PO HS 03/26/18 Trazodone HCl [Desyrel] 300 mg PO HS 03/26/18 Consultations this Visit: Other (PT/OT) Procedures this Visit: None Allergies/Adverse Reactions: Allergies Allergy/AdvReac Type Severity Reaction Status Date / Time cephalexin monohydrate Allergy Intermediate Hives Verified 02/24/15 12:33 [From Keflex] oxycodone HCl [From Percocet] Allergy Intermediate Itchy Skin Verified 02/24/15 12:33 Discharge Summary: She was discharged to home with continuation of the Bactrim, and resumption of her home medications. Home Health is engaged on discharge to home. Follow up in one week with Dr. Barnard [facility] Course: She was admitted for therapy. She did well. She had some slow healing of her left chest wound site, but it was healing well on discharge. - Final Diagnosis (1) Pneumonia Right or Left: Left
== END 2018-03-26 09:35 | disposition home health service (06) | DRG 179 ==
LOC: SOUTH 14:57
PROVIDERS: ADMIT Family Medicine; ATTEND Family Medicine
DX: J15.211 Pneumonia due to Methicillin susceptible Staphylococcus aureus (principal); I50.9 Heart failure, unspecified; T81.89XA Other complications of procedures, not elsewhere classified, initial encounter; S80.922D Unspecified superficial injury of left lower leg, subsequent encounter; E11.9 Type 2 diabetes mellitus without complications; I10 Essential (primary) hypertension; F17.210 Nicotine dependence, cigarettes, uncomplicated; Z79.4 Long term (current) use of insulin
CPT/HCPCS: 80053; 85025; 97110; 97112; 97530; 97535; 97542; A9270; J1650; J1815; 99222; 99232; 99238

== ENCOUNTER 2018-06-30 14:08 | Outpatient (CLI) | payer MEDICARE, OTHER | END 2018-06-30 14:10 | LOC: LABRHC 14:08 | PROVIDERS: ATTEND Nurse Practitioner Family | DX: N39.0 Urinary tract infection, site not specified (principal); B96.20 Unspecified Escherichia coli [E. coli] as the cause of diseases classified elsewhere; Z16.24 Resistance to multiple antibiotics | CPT/HCPCS: 87086 ==

== ENCOUNTER 2018-07-23 09:56 | Outpatient (CLI) | payer MEDICARE, OTHER | END 2018-07-23 10:30 | LOC: POD 09:56 | PROVIDERS: ATTEND Podiatrist Foot & Ankle Surgery | DX: I87.2 Venous insufficiency (chronic) (peripheral) (principal); L97.829 Non-pressure chronic ulcer of other part of left lower leg with unspecified severity | CPT/HCPCS: 11042; 99213 ==

== ENCOUNTER 2018-07-30 10:04 | Outpatient (CLI) | payer MEDICARE, OTHER | END 2018-07-30 10:30 | LOC: POD 10:04 | PROVIDERS: ATTEND Podiatrist Foot & Ankle Surgery | DX: I87.2 Venous insufficiency (chronic) (peripheral) (principal); L97.529 Non-pressure chronic ulcer of other part of left foot with unspecified severity | CPT/HCPCS: 11042; 99213 ==

== ENCOUNTER 2018-08-06 13:10 | Outpatient (CLI) | payer MEDICARE, OTHER ==
--- NOTE | 2018-08-14 08:03 | OP Clinic Progress Note ---
DATE OF VISIT: 08/06/2018 SUBJECTIVE: Donya Gaston is a 53-year-old female presenting for a left leg venous insufficiency ulcer follow-up. She has had debridement previously as well as 4-layer compression wraps which have been helping. She was healed and then developed another ulcer which was seen recently, treated and wrapped accordingly. The patient is doing well and does not admit to any fevers, chills, nausea, vomiting, shortness of breath or chest pain. She does admit to some slight discomfort in the distal stump of her right below-knee amputation. I encouraged her to let me look at that today as well. OBJECTIVE: Vitals: Temperature 98.6 degrees Fahrenheit, heart rate 84, respiration rate 18, blood pressure 129/58. O2 saturation 94% on room air. Vascular: 2+ DP and PT pulses, left foot. Capillary refill time is less than 3 seconds to the toes of the left foot. There is only mild edema noted in the left lower extremity. Dermatologic: The previous left lower leg anterior ulcer is healed at this time. There is no sign of any wound and no erythema or drainage of any kind. The leg has minor swelling in the left lower leg still but it is overall improved with some wrinkle lines due to decreased swelling. The right below-knee amputation stump has a very small stable dry eschar about the size of an eraser but without any drainage or erythema around it. There is perhaps slight discoloration in the skin in this area with perhaps a purple hue due to pressure. The patient was encouraged strongly to speak to her surgeon and see if they want to see her for a possible adjustment to her prosthesis. The patient agrees to do this. Musculoskeletal: There are no gross abnormalities noted, left foot. She has a history of right below-knee amputation. Neurologic: Light touch sensation is diminished/absent to the left foot. ASSESSMENT AND PLAN: 1. Left leg venous insufficiency ulcer. 2. Left leg venous insufficiency. 3. History of right below-knee amputation. I encouraged the patient to speak with Dr. Hickman at [place] about the right below-knee amputation stump where she is having a little bit of pain and discomfort. She agrees to do so. PROCEDURE #1: There was no wound care needing to be performed today. A 4-layer compression wrap was performed today to help reduce swelling. The patient tolerated this well. We will consider ordering compression stockings at our next visit as long as her leg seems to be doing much better. The patient was agreeable to this and we will consider a couple different options for compression stockings when she is sent over to [facility] for that. She does not have any other concerns or questions and we will see her for a return visit in 1 week. Denice AndersonP.MIsha (Dictated/Not Signed) José Miguel Job#: [id number] MTDD
== END 2018-08-06 13:40 ==
LOC: POD 13:10
PROVIDERS: ATTEND Podiatrist Foot & Ankle Surgery
DX: I87.2 Venous insufficiency (chronic) (peripheral) (principal); L97.529 Non-pressure chronic ulcer of other part of left foot with unspecified severity; Z89.512 Acquired absence of left leg below knee

== ENCOUNTER 2018-08-12 14:16 | Outpatient (CLI) | payer MEDICARE, OTHER ==
--- NOTE | 2018-08-16 15:29 | OP Clinic Progress Note ---
DATE OF VISIT: 08/12/2018 SUBJECTIVE: Donya Gaston is a female presenting today for follow-up of a left lower extremity previous venous insufficiency ulcer that has healed. The patient has been having 4-layer compression wraps to try and get the swelling down and get that healing to have happened on the left lower extremity. She reopened some ulcers recently and they have closed again since with the 4-layer compression dressings. She forgot her stockings that she was going to bring today so that we could try using them and teaching her how to use them on the left lower extremity. She would like to do the wrap again today upon my request in order to try and get a little bit more swelling down and see if we can have her bring her compression stocking next week and teach her at that point how to use it. If we do not feel she will be able to use it well then we will need to consider other stockings or another choice of compression. We do not plan on doing these forever, but these are definitely helping until we can get her a good pair of stockings. The patient does not admit to any fevers, chills, nausea, vomiting, shortness of breath or chest pain. She is doing great with the 4-layer compression wraps. OBJECTIVE: Vitals: Temperature 99.4, heart rate 97, respiration rate 20, blood pressure 134/56. O2 saturation 90% on room air. Vascular: Palpable DP and PT pulses, left foot. Capillary refill time is less than 3 seconds to the toes of the left foot. There is still mild to moderate edema in the left lower extremity, mainly in the proximal end of the lower left leg. Dermatologic: There is a slight xerotic appearance in the central anterior portion of the left lower leg. There are no open lesions, however, and no erythema noted or ecchymosis noted, left lower leg. There are no abnormal skins lesions noted, left lower leg either. Musculoskeletal: There is no pain on palpation noted in the left lower leg. There are no gross abnormalities noted, left lower extremity. History of right below-knee amputation. I forgot to follow up with her if she checked with an ortho doctor on her stump as I believe last week she said it was a little bit sore. We will need to double-check with her on that, and we will check with that. Her physician is Dr. Hickman at [place] and we need to make sure she called about having that stump slightly sore spot checked. It was not open last week but we did not look at it today. Neurologic: Light touch sensation is intact to the toes, left foot. ASSESSMENT AND PLAN: 1. Venous insufficiency ulcers healed. 2. Venous insufficiency, left lower extremity. 3. History of right below-knee amputation. 4. Mild xerosis, left lower extremity. Her left lower extremity was hydrated with lotion today. PROCEDURE #1: A 4-layer compression wrap was applied to the left lower extremity to reduce some more swelling that needs to be done before applying compression stockings. The patient is planning on bringing her compression stockings next week so we can see if it works in terms of size as well as to teach her how to apply it in an easier way. If needed, we will need to consider another form of compression if these are not working well enough. The plan is to get her out of the 4-layer wraps next week as long as she is doing well. She has continued to have no wounds so far so I believe it is time to switch her over if we can get the swelling a little bit better controlled and get good compression stockings for her. We will see her for a return to clinic visit in 1 week. Denice AndersonPMin. (Dictated/Not Signed) José Miguel Job#: [id number] MTDD
== END 2018-08-12 14:45 ==
LOC: POD 14:16
PROVIDERS: ATTEND Podiatrist Foot & Ankle Surgery
DX: I87.2 Venous insufficiency (chronic) (peripheral) (principal); L85.3 Xerosis cutis; Z89.511 Acquired absence of right leg below knee
CPT/HCPCS: 29581; 99213; G0463

== ENCOUNTER 2018-08-25 11:22 | Outpatient (CLI) | payer MEDICARE, OTHER ==
--- NOTE | 2018-08-25 12:48 | Diagnostic Imaging Report ---
[facility] [id number] [facility].[address] [id number] Report Submission Date: Aug 25, 2018 12:30:11 PM CDT Patient Study Name: MAURY TONEY Date: Aug 25, 2018 11:54:44 AM CDT Modality Type: US Gender: F Description: : 63 Institution: [facility] Physician: [facility] Examination: Ultrasound left vein History: PAIN LLE Findings: Sonographic evaluation of the left lower extremity venous system from the groin to the popliteal fossa inclusive. Normal compressibility. No luminal filling defect. Normal waveforms and response to augmentation. No popliteal region fluid collection. Impression: No evidence for deep venous thrombosis. Electronically signed on Aug 25, 2018 12:30:11 PM CDT by: Cordell NAVARRO
--- NOTE | 2018-08-28 14:17 | OP Clinic Progress Note ---
DATE OF VISIT: 08/25/2018 SUBJECTIVE: Donya Gaston is a 53-year-old female presenting to the clinic for follow-up of venous insufficiency and new wounds that have developed since our last visit. The patient had a 4-layer compression wrap applied 2 weeks ago but they removed it a week ago as she was feeling like there was some concerns and pain underneath her dressings. The patient has been using gauze and Adarsh wraps to try and keep some compression on the leg. The patient and her daughter were concerned that there was some redness and warmth about the leg and so we got her in right away to see us. The patient does not admit to any fevers, nausea, vomiting, shortness of breath or chest pain. She admits to occasional chills and overall energy being low currently in the last couple days. OBJECTIVE: Vitals: Temperature 98.2, heart rate 83, respiration rate 18, blood pressure 125/56. O2 saturation 92% on room air. Her vitals overall are still looking fine and without any signs of sepsis at this time. Vascular: Palpable DP and PT pulses, left foot. Capillary refill time is less than 3 seconds to the toes of the left foot. There is mild to moderate edema in the left lower extremity. Dermatologic: There are 3 or 4 less than 1 sq cm more like pinpoint ulcers noted in the anterior portion of the left lower leg. There is erythema and warmth around the cluster where there are 3 or 4 small lesions together in the anterolateral aspect of the left lower leg. There is warmth noted. There is no significant concern for purulence or malodor. This does look like an obvious cellulitis, however. There are no other concerns on the left lower leg or foot. Musculoskeletal: There is no pain on palpation noted in the left lower leg. There are no gross abnormalities noted, left lower extremity. There is a history of right below-knee amputation. I followed up with the patient and she has not contacted her orthopedic surgeon regarding the below-knee amputation site and the small preulcerative areas. They were not open previously but were becoming a little bit red and sore. She states that these have scabbed over and are not hurting her at this time and she has not spoken with the orthopedic surgeon. She was encouraged to monitor these carefully and to reach out if needed. Her physician is Dr. Hickman at [place]. The patient had pain on palpation with calf squeeze in the left lower leg. There is some concern for DVT at this time. Neurologic: Light touch sensation is absent to the toes, left foot. It should be noted that the last visit we accidentally mentioned that it was intact, but it is not. ASSESSMENT AND PLAN: 1. Left lower leg cellulitis. 2. Left leg venous insufficiency ulcers. 3. Venous insufficiency, left lower extremity. 4. History of right below-knee amputation. 5. Left lower leg pain. 6. Diabetes mellitus, type 2. Venous Dopplers were performed today due to concern for DVT. Venous Dopplers preliminarily returned as negative. The official read came back as no evidence of DVT in the left lower extremity. We did not have results back when the patient left and therefore dressings were applied consisting of Betadine soaked Adaptic 4x4 gauze, Kerlix and a couple rolls of Adarsh wraps. I do not want to apply any significant compression as the patient has some cellulitis at this time and we wanted to first make sure she did not have any sort of DVT. The patient denies any sort of kidney issues and recently had Bactrim DS in March 2018. A prescription for Bactrim DS 800/160 was dispensed, 1 capsule by mouth twice daily for 14 days to William. This was E-prescribed to William through the [employer] ambulatory orders. The patient knows to monitor her leg closely and is to plan on coming to see me again on for follow-up in outpatient clinic. If it is not improving or if it is worsening, we will plan on admitting her for IV antibiotics as she is a diabetic patient. The patient will likely continue these same dressings daily or every other day at this time with her daughter until next week when we can hopefully get her into 4-layer compression wraps to get these healed and then back into compression stockings at that time. That will be our plan going forward. The patient if is showing any signs of sepsis or infection elsewhere will be worked up and admitted as needed. She is to return and see us as soon as possible if any concerns arise. Denice AndersonPMin. (Dictated/Not Signed) José Miguel Job#: [id number] MTDErlinda
== END 2018-08-25 11:50 ==
LOC: POD 11:22
PROVIDERS: ATTEND Podiatrist Foot & Ankle Surgery
DX: L03.116 Cellulitis of left lower limb (principal); E11.622 Type 2 diabetes mellitus with other skin ulcer; L97.929 Non-pressure chronic ulcer of unspecified part of left lower leg with unspecified severity
CPT/HCPCS: 93971; 99213

== ENCOUNTER 2018-08-27 08:50 | Outpatient (CLI) | payer MEDICARE, OTHER ==
--- NOTE | 2018-08-28 14:18 | OP Clinic Progress Note ---
DATE OF VISIT: 08/27/2018 SUBJECTIVE: Donya Gaston is a 53-year-old female presenting to the clinic today for follow-up of left leg cellulitis. She was seen a couple days ago and started on Bactrim on Friday. She states that she believes it is starting to look better. She was doing dressing changes at home with her daughter, Alee, with Betadine dressings and Adarsh wraps. The patient states that she is doing well. She does not admit to any fevers, nausea, vomiting, shortness of breath or chest pain. She states that she still does feel tired but she does not admit to any other real issues at this time. She does admit to taking the Bactrim as prescribed since Friday. OBJECTIVE: Vitals: Temperature 98.2, heart rate 84, respiration rate 18, blood pressure 113/51. O2 saturation 90% on room air. Vascular: Palpable DP and PT pulses, left foot. Capillary refill time is less than 3 seconds to the toes of the left foot. There is moderate edema, left lower extremity. Dermatologic: There are 3 or 4 small eraser-sized lesions noted together on the anterolateral aspect of the left lower leg. There is much improved/less erythema and no warmth noted around these wounds at this time. There is mild serous drainage from them. There is no purulence or malodor noted. There are no other concerning lesions, left lower extremity. The toenails are also long, thick and discolored and she would like these trimmed today as she cannot do it on her own. Musculoskeletal: There is mild pain on palpation at the proximal end of the left lower leg but she states that last night she twisted her knee but is overall doing okay but has some soreness in that area in the proximal lower leg area. She has no other pain to palpation noted, or with debridement with the gauze. There are no other gross abnormalities noted, left leg. History of [id number] amputation on the right lower extremity. Neurologic: Light touch sensation is absent to the toes, left foot. ASSESSMENT AND PLAN: 1. Left leg cellulitis greatly improved. 2. Left leg venous insufficiency ulcers still present. 3. Left leg venous insufficiency. The wound sites were flushed with a copious amount of normal saline and cleaned and debrided with a 4x4 gauze only today to a granular bleeding base. Hemostasis was with pressure. Dressings were applied consisting of Betadine soaked Adaptic 4x4 gauze, Kerlix and 3 layers of 4-inch Adarsh wrap from the foot up to the lower part of the knee. The patient will continue having these changed every other day at this time. We can do an order for home health care to continue these dressing changes at this time. We will have the patient return to the clinic in 1 week and as long as she has continued her Bactrim, her leg I believe will continue to look much better and we should be able to resume 4-layer compression wraps next week and will likely do that once or twice for a couple weeks and hopefully transition her finally into a compression stocking as long as we get these wounds healed. The patient had no further questions or concerns and we will see her in 1 week. Denice AndersonP.M. (Dictated/Not Signed) José Miguel Job#: [id number] MTDErlinda
== END 2018-08-27 09:25 ==
LOC: POD 08:50
PROVIDERS: ATTEND Podiatrist Foot & Ankle Surgery
DX: I87.2 Venous insufficiency (chronic) (peripheral) (principal); L97.529 Non-pressure chronic ulcer of other part of left foot with unspecified severity
CPT/HCPCS: 99213; G0463

== ENCOUNTER 2018-08-28 18:45 | Outpatient (CLI) | payer MEDICARE, OTHER ==
[2018-08-28 20:42] LABS: BASOPHILS % 0.6 % (0.0-1.5); NEUTROPHILS # 4.3 # k/uL (1.4-7.7)
== END 2018-08-28 18:47 ==
LOC: LAB 18:45
PROVIDERS: ATTEND Family Medicine
DX: R31.0 Gross hematuria (principal)
CPT/HCPCS: 85025

== ENCOUNTER 2018-09-03 06:59 | Outpatient (CLI) | payer MEDICARE, OTHER ==
--- NOTE | 2018-09-08 09:40 | OP Clinic Progress Note ---
DATE OF VISIT: 09/03/2018 SUBJECTIVE: Donya Gaston is a 53-year-old female presenting to clinic today with her daughter in the room for follow up of left leg cellulitis and venous insufficiency ulcer with left leg venous insufficiency. The patient was seen twice last week due to increased redness and a wound and severe warmth for which she was placed on antibiotics at the beginning of the week and followed up with on last week. She has been in a Betadine gauze, Kerlix and an Adarsh wrap dressing, which has been changed at home by her daughter, Alee. The patient does not admit to any fever, chills, nausea, vomiting, shortness of breath or chest pain. She is doing well otherwise. She has been taking her antibiotics faithfully and has one week left. OBJECTIVE: Vitals: Temperature 98.4 degrees Fahrenheit, heart rate 88, respiration rate 16, blood pressure 124/58. O2 saturation is 91% on room air. Vascular: Palpable DP and PT pulses, left foot. Capillary refill time is less than 3 seconds to the toes of the left foot. There is still mild to moderate edema noted in the left lower extremity. Dermatologic: There is one overall fairly stable eschar with a small amount of what appears to be necrotic fluid expressed, about one drop, from the distal aspect of this eschar. There is overall pink hue to the leg, but there is no warmth or significant erythema noted. Overall it appears that the cellulitis has resolved. There are no other open lesions or concerning areas on the left leg outside of this one spot that is a conglomerate of a fairly stable eschar from the previous few small ulcers from previous. Musculoskeletal: There is no pain on palpation noted. There are no gross abnormalities noted of the left leg. There is a history of below knee amputation of the right lower extremity. Neurologic: Light touch sensation is absent to the toes, left foot. ASSESSMENT AND PLAN: 1. Left leg cellulitis - mostly resolved. 2. Left leg venous insufficiency ulcer. 3. Left leg venous insufficiency. 4. History of below knee amputation right leg. PROCEDURE #1: Four layer compression wrap was applied to the left lower extremity today. It should be noted that she has a fairly stable eschar with a small amount of what appeared to be necrotic fluid expressed from the distal aspect as it is still slightly loose of an eschar. We left the eschar alone overall outside of pressing on it to squeeze out that tiny drop of fluid. There does not appear to have any significant signs of infection at all at this time and is resolving well. There was no debridement performed as we decided to leave the eschar alone today. The wound was dressed with Betadine soaked Adaptic, 4 x 4 gauze and Kerlix and followed by the four layer compression wrap mentioned above. Due to the slightly bit of what appeared to be necrotic fluid and fairly stable eschar we would like to still see the patient next week on Friday to follow up with wound care and potentially put on another four layer wrap at that time. The patient is to finish her antibiotics for this next week that she has. We will see her again on Friday for close follow up to make sure she is completely resolved from the cellulitis and that the eschar has become more stable or healed at that time. We will likely need to do a couple more weeks of the four layer wraps while this is healing and then hopefully can get her into the compression stocking. Denice AndersonP.M.(Dictated/not signed) /[employer] [id number] /mab MTDD
== END 2018-09-03 07:02 ==
LOC: POD 06:59
PROVIDERS: ATTEND Podiatrist Foot & Ankle Surgery
DX: L03.116 Cellulitis of left lower limb (principal); I87.312 Chronic venous hypertension (idiopathic) with ulcer of left lower extremity; L97.529 Non-pressure chronic ulcer of other part of left foot with unspecified severity; I87.2 Venous insufficiency (chronic) (peripheral); Z89.511 Acquired absence of right leg below knee

== ENCOUNTER 2018-09-10 15:06 | Outpatient (CLI) | payer MEDICARE, OTHER ==
[2018-09-06 15:27] VITALS: BP 127/51
--- NOTE | 2018-09-15 15:16 | OP Clinic Progress Note ---
DATE OF VISIT: 09/10/2018 SUBJECTIVE: Donya Singer is a 53-year-old female presenting to clinic today for followup of a left lower leg venous insufficiency and recent laceration. The patient was seen on 09/07/2018 for an initial visit for the laceration that she sustained on a metal screen door. The patient was given a tetanus shot at that time as she for some reason never received it in the emergency department previously. The patient presents today stating that she is doing great and without any complaints. She does not admit to any fevers, chills, nausea, vomiting, shortness of breath or chest pain. OBJECTIVE: Vitals: Temperature 98.0 degrees Fahrenheit, heart rate 87, respiration rate 18, blood pressure 126/61. O2 saturation is 91% on room air. Vascular: Palpable DP and PT pulses, left foot. Capillary refill time is less than 3 seconds to the toes of the left foot. There is moderate edema noted, left lower leg and ankle. Dermatologic: The open wound on the anterolateral aspect of the left lower leg appears to be improving. There is mild biofilm with yellow slough in the base, which is debrided today with a curette. There is overall still good granular base and the 4 to 5 cm piece of skin that was essentially a skin flap that was left on the skin bed after debridement has begun to tack down and is not able to be moved with light palpation. There is still some dark discoloration in the tissue at the skin flap and we will see if it is viable later or not. There is no purulence, malodor or erythema noted. There is no probe to bone or fluctuance of any kind. There are no signs of infection. There are no other skin lesions or abnormalities noted of concern. Musculoskeletal: There are no other gross abnormalities noted, left foot. There is a history of a right below knee amputation. Neurologic: Light touch sensation is diminished to the toes, left foot. The patient does have pain with debridement of the left leg ulcer. ASSESSMENT AND PLAN: 1. Diabetes mellitus type 2. 2. Laceration of the left lower extremity, subsequent encounter. 3. Venous insufficiency of the left lower extremity, I87.2. PROCEDURE #1: Sharp debridement to subcutaneous tissue less than 20 square cm with a curette was performed today. The site was then flushed with a copious amount of normal saline. The patient tolerated the procedure well. Hemostasis was obtained with pressure. Dressings were applied consisting of Betadine- soaked Adaptic, 4x4 gauze, ABD pad and a Kerlix roll. PROCEDURE #2: Four-layer compression wrap was then applied according to proper step by step procedure. The patient tolerated the procedure well. The goal of the four layer compression wrap is to keep compression and fluid out of the leg while this heals in order to help it heal quickly and efficiently. The patient has been on doxycycline and is to continue finishing her antibiotic. The patient has no further questions or concerns and we will also set up home health care to see her on Mondays. They will do the same dressing we did today and we will send that order in, and a prescription has been written and will be sent to home health care for that, likely to [facility]. Return to clinic in one week for followup and aggressive wound care. Denice AndersonP.M. (Dictated/not signed) /[employer] [id number] /mab MTDD
== END 2018-09-10 15:35 ==
LOC: POD 15:06
PROVIDERS: ATTEND Podiatrist Foot & Ankle Surgery
DX: I87.2 Venous insufficiency (chronic) (peripheral) (principal); E11.9 Type 2 diabetes mellitus without complications
CPT/HCPCS: 11042; 99212

== ENCOUNTER 2018-09-14 14:57 | Inpatient (IN) | payer MEDICARE, OTHER ==
[2018-09-14 16:34] VITALS: BMI 29.5
[2018-09-14] MEDS: L. ACIDOPHILUS/LACTOBAC SPOR 1 EACH CAP PO SCH (18:23)
[2018-09-14 18:24] LABS: BASOPHILS % 0.6 % (0.0-1.5)
[2018-09-14] MEDS: 0.9 % SODIUM CHLORIDE 1,000 ML IV SCH (18:24)
[2018-09-14] MEDS: CLINDAMYCIN PHOSPHATE/D5W 600 MG/50 ML PIGGYBACK IV SCH (18:24)
[2018-09-14 18:25] LABS: NEUTROPHILS # 4.9 # k/uL (1.4-7.7)
[2018-09-14 18:29] LABS: eGFR (Non-African) > 60
--- NOTE | 2018-09-14 20:47 | History and Physical Report ---
History of Present Illnes - History of Present Illness Reason for Visit: Cellulitis History of Present Illness: Patient was seen in follow up for a L leg wound by Dr. Dean today. She had gotten an injury several weeks before. She had been doing well until this past week when she felt poorly and having chills. DR. Dean felt her leg was looking worse despite outpatient oral antibiotics. She will be admitted for IV antibiotics. Patient had a R BKA several years ago. - Past Medical History Cardiac: CHF, HTN, Hyperlipidemia Pulmonary: Asthma, COPD, Pneumonia FLOOR COVERINGS SALESPERSON: Peripheral neuropathy Gastrointestinal: Constipation, GERD Heme/Onc: Anemia NOS, B12 deficiency Psych: Anxiety, Addictions (History of methamphetamine abuse), Bipolar, Depression Musculoskeletal: Chronic low back pain, Osteoarthritis Endocrine: Diabetes Dermatology: Cellulitis - Past Surgical History Past Surgical History: Appendectomy, Cholecystectomy, Other (Right below knee amputation, full dental exctraction, facial reconstruction) - Past Social History Smoke: 2 packs per day (but quit on hospitalization) Occupation: Disabled Alcohol: None (But has history of heavy alcohol use) Drugs: None Lives: Alone Domestic Violence: Negative - Health Maintenance Health Maintenance: Cholesterol Influenza Vaccine: Current for this Influenza Season Pneumonia Vaccine: Yes Resuscitation Status: Resusciation Status Resuscitation Status Full Code Review of Systems - Review of Systems Constitutional: Weakness. negative: Fever Eyes: negative: pain ENT: negative: Nose Discharge, Nose Congestion Respiratory: negative: Cough, Shortness of Breath Cardiovascular: negative: Chest Pain, Palpitations Gastrointestinal: negative: Nausea, Vomiting, Abdominal Pain Genitourinary: negative: Dysuria Musculoskeletal: negative: Neck Pain Skin: Rash Neurological: Weakness - Medications/Allergies Allergies/Adverse Reactions: Allergies Allergy/AdvReac Type Severity Reaction Status Date / Time cephalexin monohydrate Allergy Intermediate Hives Verified 09/06/18 15:27 [From Keflex] oxycodone HCl [From Percocet] Allergy Intermediate Itchy Skin Verified 09/06/18 15:27 strawberry AdvReac Rash Verified 09/14/18 19:03 Home Medications: Home Medications Insulin Aspart [Novolog Flexpen] 50 unit SQ TID 09/14/18 Current Inpatient Medications: Current Inpatient Medications Ciprofloxacin/Dextrose (Cipro) 400 mg IV Q12 VIRY Enoxaparin Sodium (Lovenox) 40 mg SQ DAILY [facility] Stop: 09/29/18 08:59 Clindamycin HCl (Cleocin) 600 mg in 50 mls @ 50 mls/hr IV Q8H [facility] Last Admin: 09/14/18 18:24 Dose: 50 mls/hr Sodium Chloride (Normal Saline) 1,000 mls @ 80 mls/hr IV Q10H [facility] Last Admin: 09/14/18 18:24 Dose: 80 mls/hr Exam - Exam Vital Signs: Vital Signs (72 hours) 09/14/18 09/14/18 09/14/18 16:30 16:31 17:42 Temperature 97.8 F 97.8 F 98.4 F Pulse Rate [ 82 Left] Pulse Rate [ 80 80 Right Pulse ox] Respiratory 20 20 20 Rate Blood Pressure 135/65 [Left Arm] Blood Pressure 125/54 125/54 [Right Arm] O2 Sat by Pulse 91 L 91 L 94 Oximetry General: Alert, Oriented to Person, Oriented to Place, Oriented to Time, Cooperative, No acute distress HEENT: Atraumatic Neck: Normal Range of Motion Lungs: Clear to auscultation, Normal air movement, Speaks full Sentences Cardiovascular: Regular rate Abdomen: Normal bowel sounds, Soft, No tenderness, No masses Integumentary: Other (Diffuse erythema in LLE. Wound has been bandaged freshly from podiatry who will be following dailyi.) Extremities: No edema Neurological: Generalized Weakness Psych/Mental Status: Mental status NL, Mood NL, Appropriate Affect, Intact Judgment - Laboratory Results Laboratory Results: Laboratory Results 09/14/18 09/14/18 16:51 16:51 WBC 7.30 RBC 5.49 H Hgb 16.5 H Hct 49.3 H MCV 90.0 MCH 30.0 MCHC 33.4 RDW 13.5 Plt Count 126 L Neut % (Auto) 66.4 Lymph % (Auto) 26.0 [place] % (Auto) 6.0 Eos % (Auto) 1.0 Baso % (Auto) 0.6 Neut # (Auto) 4.9 Lymph # (Auto) 1.9 [place] # (Auto) 0.4 Eos # (Auto) 0.1 Baso # (Auto) 0.0 Sodium 138 Potassium 3.8 Chloride 98 Carbon Dioxide 30 Anion Gap 13.8 BUN 21 H Creatinine 1.27 H Estimated Creat Clear 73 Est GFR ( Amer) > 60 Est GFR (Non-Af Amer) > 60 Glucose 256 H Calcium 9.1 Total Bilirubin 0.2 AST 21 ALT 13 Alkaline Phosphatase 86 Total Protein 7.4 Albumin 4.0 Assessment/Plan - Assessment/Plan (1) Cellulitis of left lower extremity Status: Acute Current Visit: Yes Plan: Will admit for IV cipro and clinda per podiatry recs. He will follow along with us. Lovenox started however platelets slightly low so watch closely. U/S in am to r/o DVT. (2) CHF (congestive heart failure) Status: Chronic Current Visit: No Qualifiers: Qualified Code(s): I50.9 - Heart failure, unspecified Plan: GEntle IV Hydration. Watch closely. (3) Chronic obstructive lung disease Status: Chronic Current Visit: No Plan: Stable. Contnue current meds. (4) Diabetes mellitus type 2 Status: Acute Current Visit: No Plan: Historically poor control. Will get patient started on a SSI> VTE Assessment - RISK FACTOR SCORE VTE RISK FACTOR SCORES: AGE 40-60 YEARS, ACUTE INFECTION OTHER THEN SEPSIS, ANTICIPATED BED CONFINEMENT OR IMMOBILIZATION > 24 HOURS - RISK VTE HIGH RISK: SCORE OF 3-4 (RISK PROXIMAL DVT 4-8%) PROPHYLAXIS NEEDED
[2018-09-14] MEDS: CIPROFLOXACIN IN 5 % DEXTROSE 400 MG/200 ML BAG IV SCH (20:55)
[2018-09-14] MEDS ORDERED: ONDANSETRON HCL 4 MG TAB.RAPDIS PO PRN (21:20)
[2018-09-14] MEDS ORDERED: SENNOSIDES 8.6 MG TABLET PO PRN (21:20)
[2018-09-14] MEDS ORDERED: INSULIN GLARGINE,HUM.REC.ANLOG 100 UNIT/ML PEN.INJCTR SQ ONE (21:47)
[2018-09-15] MEDS: CLINDAMYCIN PHOSPHATE/D5W 600 MG/50 ML PIGGYBACK IV SCH ×4 (01:25→18:15)
[2018-09-15] MEDS ORDERED: IBUPROFEN 400 MG TABLET PO ONE (01:28)
[2018-09-15] MEDS: 0.9 % SODIUM CHLORIDE 1,000 ML IV SCH ×2 (08:30→13:48)
[2018-09-15] MEDS: CIPROFLOXACIN IN 5 % DEXTROSE 400 MG/200 ML BAG IV SCH ×2 (08:31→20:39)
[2018-09-15] MEDS: INSULIN LISPRO 100 UNIT/ML 3ML VIAL SQ SCH ×4 (08:32→21:15)
[2018-09-15] MEDS: lamoTRIgine 100 MG TABLET PO SCH ×2 (08:33→20:40)
[2018-09-15] MEDS: ASPIRIN EC 81 MG TABLET.DR PO SCH (08:33)
[2018-09-15] MEDS: FUROSEMIDE 40 MG TABLET PO SCH ×2 (08:33→15:45)
[2018-09-15] MEDS: PRAMIPEXOLE DI-HCL 0.5 MG TABLET PO SCH ×3 (08:35→18:15)
[2018-09-15] MEDS: ENOXAPARIN SODIUM 40 MG/0.4 ML DISP.SYRIN SQ SCH (08:35)
[2018-09-15] MEDS: PANTOPRAZOLE SODIUM 40 MG TABLET.DR PO SCH ×2 (08:36→15:45)
[2018-09-15] MEDS: FLUoxetine HCL 10 MG CAPSULE PO SCH ×2 (08:36→20:40)
--- NOTE | 2018-09-15 08:36 | Inpatient Progress Note ---
Subjective - Required Recertification Statement I anticipate X number of days because-include discharge plan: 2 - Review of Systems Subjective: Patient's leg is looking better. BS this am 126 so short acting scheduled insulin held. Not very hungry this morning. Objective - Exam Vitals and I&O: Vital Signs Temp 99.1 F 09/15/18 05:44 Pulse 72 09/15/18 05:44 Resp 20 09/15/18 05:59 BP 132/68 09/15/18 05:44 Pulse Ox 92 09/15/18 05:44 Intake & Output 09/14/18 09/14/18 09/15/18 11:59 23:59 11:59 Intake Total 250 960 Output Total 1000 Balance 250 -40 Weight 78.018 kg Intake: IV 10 960 right forarm 10 960 Oral 240 Output: Urine 1000 Other: Voiding Method Bedside Commode Bedside Commode # Bowel Movements 0 General: Alert, Oriented to Person, Oriented to Place, Oriented to Time, Cooperative, No acute distress Lungs: Clear to auscultation Cardiovascular: Regular rate Extremities: Other (decreased erythema.) - Results Results: Laboratory Results WBC 7.30 K/ul (4.00-12.00) 09/14/18 16:51 RBC 5.49 M/ul (3.90-5.20) H 09/14/18 16:51 Hgb 16.5 g/dL (11.5-16.0) H 09/14/18 16:51 Hct 49.3 % (34.5-46.5) H 09/14/18 16:51 MCV 90.0 fl (80.0-100.0) 09/14/18 16:51 MCH 30.0 pg (28.0-34.0) 09/14/18 16:51 MCHC 33.4 g/dL (30.0-36.0) 09/14/18 16:51 RDW 13.5 % (11.3-14.3) 09/14/18 16:51 Plt Count 126 K/mm3 (130-400) L 09/14/18 16:51 Neut % (Auto) 66.4 % (39.0-79.0) 09/14/18 16:51 Lymph % (Auto) 26.0 % (16.0-50.0) 09/14/18 16:51 [place] % (Auto) 6.0 % (0.0-11.0) 09/14/18 16:51 Eos % (Auto) 1.0 % (0.0-6.8) 09/14/18 16:51 Baso % (Auto) 0.6 % (0.0-1.5) 09/14/18 16:51 Neut # (Auto) 4.9 # k/uL (1.4-7.7) 09/14/18 16:51 Lymph # (Auto) 1.9 # k/uL (0.6-4.0) 09/14/18 16:51 [place] # (Auto) 0.4 # k/uL (0.0-0.9) 09/14/18 16:51 Eos # (Auto) 0.1 # k/uL (0.0-0.6) 09/14/18 16:51 Baso # (Auto) 0.0 # k/uL (0.0-0.5) 09/14/18 16:51 Sodium 138 mmol/L (137-145) 09/14/18 16:51 Potassium 3.8 mmol/L (3.5-5.1) 09/14/18 16:51 Chloride 98 mmol/L (98-107) 09/14/18 16:51 Carbon Dioxide 30 mmol/L (22-30) 09/14/18 16:51 Anion Gap 13.8 09/14/18 16:51 BUN 21 mg/dL (7-17) H 09/14/18 16:51 Creatinine 1.27 mg/dL (0.52-1.04) H 09/14/18 16:51 Estimated Creat Clear 73 09/14/18 16:51 Est GFR ( Amer) > 60 (60-) 09/14/18 16:51 Est GFR (Non-Af Amer) > 60 (60-) 09/14/18 16:51 Glucose 256 mg/dL (74-106) H 09/14/18 16:51 Calcium 9.1 mg/dL (8.4-10.2) 09/14/18 16:51 Total Bilirubin 0.2 mg/dL (0.2-1.3) 09/14/18 16:51 AST 21 U/L (15-46) 09/14/18 16:51 ALT 13 U/L (13-69) 09/14/18 16:51 Alkaline Phosphatase 86 U/L (38-126) 09/14/18 16:51 Total Protein 7.4 g/dL (6.3-8.2) 09/14/18 16:51 Albumin 4.0 g/dL (3.5-5.0) 09/14/18 16:51 Assessment/Plan - Assessment/Plan (1) Cellulitis of left lower extremity Status: Acute Current Visit: Yes Plan: Improving. Continue IV antibiotics. Follow labs. Podiatry consult. (2) CHF (congestive heart failure) Status: Chronic Current Visit: No Plan: SLIV when good po intake. (3) Chronic obstructive lung disease Status: Chronic Current Visit: No (4) Diabetes mellitus type 2 Status: Acute Current Visit: No Plan: Hold off scheduled short acting insulin. SSI in place. Hold invokana.
[2018-09-15] MEDS: L. ACIDOPHILUS/LACTOBAC SPOR 1 EACH CAP PO SCH (08:37)
[2018-09-15] MEDS ORDERED: 0.9 % SODIUM CHLORIDE 0 ML IV ONE (08:54)
[2018-09-15] MEDS ORDERED: LEVOTHYROXINE SODIUM 50 MCG TABLET ONE (08:58)
[2018-09-15] MEDS ORDERED: POLYETHYLENE GLYCOL 3350 17 GM POWD.PACK PO SCH (09:00)
[2018-09-15] MEDS ORDERED: LORazepam 1 MG TABLET PO PRN (09:00)
[2018-09-15] MEDS ORDERED: IBUPROFEN 400 MG TABLET PO PRN (09:00)
[2018-09-15] MEDS ORDERED: Non-Formulary 1 EACH (Lamotrigine [Lamictal] 200 MG) PO SCH (09:00)
[2018-09-15] MEDS ORDERED: FLUOXETINE HCL 40 MG PO SCH (09:00)
[2018-09-15] MEDS ORDERED: OLANZAPINE 10 MG PO SCH (09:00)
[2018-09-15] MEDS ORDERED: LEVOTHYROXINE SODIUM 25 MCG TABLET PO SCH (09:00)
[2018-09-15] MEDS ORDERED: INSULIN ASPART 50 UNIT SQ SCH (09:00)
[2018-09-15] MEDS: FLUTICASONE/SALMETEROL 250-50 INHALER IH SCH ×2 (09:43→20:56)
[2018-09-15] MEDS: LURASIDONE HCL (NF) 40 MG TABLET PO SCH (09:44)
[2018-09-15] MEDS: LEVOTHYROXINE SODIUM 50 MCG TABLET PO SCH (09:47)
[2018-09-15] MEDS: POLYETHYLENE GLYCOL 3350 17 GM POWD.PACK PO SCH (11:39)
--- NOTE | 2018-09-15 11:40 | Diagnostic Imaging Report ---
ANDREW MCMILLAN [facility] [address] [facility] [id number] Report Submission Date: Sep 15, 2018 11:37:11 AM CDT Patient Study Name: MAURY TONEY Date: Sep 15, 2018 10:54:43 AM CDT Modality Type: US Gender: F Description: US UE VEINS UNILAT : 63 Institution: [facility] Physician: ANDREW MCMILLAN Examination: Ultrasound left vein History: EDEMA REDNESS AND SWELLING NEGATIVE FOR DVT Findings: Sonographic evaluation of the left lower extremity venous system from the groin to the popliteal fossa inclusive. Normal compressibility. No luminal filling defect. Normal waveforms and response to augmentation. No popliteal region fluid collection. Impression: No evidence for deep venous thrombosis. Electronically signed on Sep 15, 2018 11:37:11 AM CDT by: Cordell NAVARRO
[2018-09-15] MEDS: hydrOXYzine HCL 25 MG TABLET PO SCH (20:38)
[2018-09-15] MEDS: traZODone HCL 50 MG TABLET PO SCH (20:39)
[2018-09-15] MEDS: SIMVASTATIN 20 MG TABLET PO SCH (20:40)
[2018-09-15] MEDS: INSULIN GLARGINE,HUM.REC.ANLOG 100 UNIT/ML PEN.INJCTR SQ SCH (21:15)
[2018-09-16] MEDS: 0.9 % SODIUM CHLORIDE 1,000 ML IV SCH ×3 (01:42→17:44)
[2018-09-16] MEDS: CLINDAMYCIN PHOSPHATE/D5W 600 MG/50 ML PIGGYBACK IV SCH ×3 (03:03→16:54)
[2018-09-16] MEDS: traMADol HCL 50 MG TABLET PO PRN (05:30)
[2018-09-16] MEDS: PANTOPRAZOLE SODIUM 40 MG TABLET.DR PO SCH ×2 (05:31→16:43)
[2018-09-16] MEDS: LEVOTHYROXINE SODIUM 50 MCG TABLET PO SCH (05:31)
[2018-09-16] MEDS: FUROSEMIDE 40 MG TABLET PO SCH ×2 (05:31→16:43)
[2018-09-16 06:46] LABS: BASOPHILS % 0.4 % (0.0-1.5); NEUTROPHILS # 3.7 # k/uL (1.4-7.7); eGFR (Non-African) > 60
--- NOTE | 2018-09-16 07:49 | Inpatient Progress Note ---
Subjective - Required Recertification Statement I anticipate X number of days because-include discharge plan: 1 - Review of Systems Subjective: Patient's doing ok. Slept ok last night. Objective - Exam Vitals and I&O: Vital Signs Temp 96.8 F L 09/16/18 05:55 Pulse 75 09/16/18 05:55 Resp 20 09/16/18 05:55 BP 111/73 09/16/18 05:55 Pulse Ox 94 09/16/18 05:55 Intake & Output 09/15/18 09/15/18 09/16/18 11:59 23:59 11:59 Intake Total 1080 1800 1440 Output Total 1000 7800 1600 Balance 80 -6000 -160 Intake: IV 960 960 Left inner wrist 960 right forarm 960 Oral 120 1800 480 Output: Urine 1000 7800 1600 Other: Voiding Method Bedside Commode Bedside Commode Bedside Commode # Bowel Movements 0 0 General: Alert, Oriented to Person, Oriented to Place, Oriented to Time, Cooperative, No acute distress Lungs: Clear to auscultation, Normal air movement Cardiovascular: Regular rate Skin: Other (Stable erythema on L leg) - Results Results: Laboratory Results WBC 5.60 K/ul (4.00-12.00) 09/16/18 05:43 RBC 5.31 M/ul (3.90-5.20) H 09/16/18 05:43 Hgb 16.0 g/dL (11.5-16.0) 09/16/18 05:43 Hct 48.0 % (34.5-46.5) H 09/16/18 05:43 MCV 90.0 fl (80.0-100.0) 09/16/18 05:43 MCH 30.0 pg (28.0-34.0) 09/16/18 05:43 MCHC 33.2 g/dL (30.0-36.0) 09/16/18 05:43 RDW 14.5 % (11.3-14.3) H 09/16/18 05:43 Plt Count 103 K/mm3 (130-400) L 09/16/18 05:43 Neut % (Auto) 66.9 % (39.0-79.0) 09/16/18 05:43 Lymph % (Auto) 24.2 % (16.0-50.0) 09/16/18 05:43 [place] % (Auto) 7.2 % (0.0-11.0) 09/16/18 05:43 Eos % (Auto) 1.3 % (0.0-6.8) 09/16/18 05:43 Baso % (Auto) 0.4 % (0.0-1.5) 09/16/18 05:43 Neut # (Auto) 3.7 # k/uL (1.4-7.7) 09/16/18 05:43 Lymph # (Auto) 1.4 # k/uL (0.6-4.0) 09/16/18 05:43 [place] # (Auto) 0.4 # k/uL (0.0-0.9) 09/16/18 05:43 Eos # (Auto) 0.1 # k/uL (0.0-0.6) 09/16/18 05:43 Baso # (Auto) 0.0 # k/uL (0.0-0.5) 09/16/18 05:43 Sodium 138 mmol/L (137-145) 09/16/18 05:43 Potassium 4.3 mmol/L (3.5-5.1) 09/16/18 05:43 Chloride 98 mmol/L (98-107) 09/16/18 05:43 Carbon Dioxide 32 mmol/L (22-30) H 09/16/18 05:43 Anion Gap 12.3 09/16/18 05:43 BUN 20 mg/dL (7-17) H 09/16/18 05:43 Creatinine 1.10 mg/dL (0.52-1.04) H 09/16/18 05:43 Estimated Creat Clear 84 09/16/18 05:43 Est GFR ( Amer) > 60 (60-) 09/16/18 05:43 Est GFR (Non-Af Amer) > 60 (60-) 09/16/18 05:43 Glucose 324 mg/dL (74-106) H 09/16/18 05:43 Calcium 9.2 mg/dL (8.4-10.2) 09/16/18 05:43 Total Bilirubin 0.2 mg/dL (0.2-1.3) 09/14/18 16:51 AST 21 U/L (15-46) 09/14/18 16:51 ALT 13 U/L (13-69) 09/14/18 16:51 Alkaline Phosphatase 86 U/L (38-126) 09/14/18 16:51 Total Protein 7.4 g/dL (6.3-8.2) 09/14/18 16:51 Albumin 4.0 g/dL (3.5-5.0) 09/14/18 16:51 Assessment/Plan - Assessment/Plan (1) Cellulitis of left lower extremity Status: Acute Current Visit: Yes Plan: AFter discussion with podiatry, will likely continue IV antibiotics on SNF but will see how tomorrow exam is. (2) CHF (congestive heart failure) Status: Chronic Current Visit: No (3) Chronic obstructive lung disease Status: Chronic Current Visit: No (4) Diabetes mellitus type 2 Status: Acute Current Visit: No Plan: Continue to adjust insulin.
[2018-09-16] MEDS: FLUoxetine HCL 10 MG CAPSULE PO SCH ×2 (08:00→21:14)
[2018-09-16] MEDS: ASPIRIN EC 81 MG TABLET.DR PO SCH (08:00)
[2018-09-16] MEDS: INSULIN LISPRO 100 UNIT/ML 3ML VIAL SQ SCH ×7 (08:00→21:10)
[2018-09-16] MEDS: ENOXAPARIN SODIUM 40 MG/0.4 ML DISP.SYRIN SQ SCH (08:00)
--- NOTE | 2018-09-16 08:47 | OP Clinic Progress Note ---
MAURY GASTON ADMISSION#.: [id number] : 1965 DATE OF VISIT: 09/14/2018 SUBJECTIVE: Maury Gaston is a 53-year-old female presenting to the clinic for follow-up of a left leg ulcer with venous insufficiency. The patient has been treated and is on antibiotics currently with Bactrim DS that she began taking as soon as she finished her most recent medication before that. She was given the Bactrim DS by the ER to begin after finishing antibiotic I had her on after she was seen in the ER recently for getting her left leg caught on the metal screen door which tore off some skin. The patient recently was given a tetanus shot in clinic as she did not receive it in the ER for some reason. The patient presented today for follow-up. The patient presents at this time stating she is not feeling well, she has low energy and is having some chills. She is a little bit concerned and states that her left leg is feeling worse, I believe, at this time. The patient does not admit to any fevers, vomiting, shortness of breath or chest pain but she does admit to some chills and nausea lately. OBJECTIVE: Vitals: Temperature 98.2 degrees Fahrenheit, heart rate 86, respiration rate 16, blood pressure 113/48. O2 saturation is 92% on room air. Vascular: Palpable DP and PT pulses, left foot. Capillary refill time is less than 3 seconds to the toes of the left foot. There is severe edema noted in the left lower leg. Dermatologic: The patient has an overall erythematous and extremely warm and very swollen left lower leg. This is a significant difference from what I saw at the most recent exam with her on 09/10/18, four days prior. The patient does not have any purulence, malodor nor fluctuance of any kind. Musculoskeletal: There is some pain in the calf with pressure and the calf in general is very full and tender to touch today. The patient has an ulcer that is still present with some biofilm noted/yellow slough in the base. This was debrided today to a good bleeding granular base again. This was done after applying lidocaine jelly to help numb it first, which helped a lot. There are no other gross abnormalities noted. She does have a history of a below-knee amputation of the right lower extremity. Neurologic: Light touch sensation is diminished to the toes, left foot. ASSESSMENT AND PLAN: 1. Left leg venous insufficiency ulcer. 2. Left leg venous insufficiency. 3. Left leg cellulitis. 4. Possible DVT, left lower extremity. 5. Failing antibiotic therapy. PROCEDURE #1: Sharp debridement of the left lower leg ulcer was performed today with a curette down to and including the subcutaneous tissue layer, less than 20 sq. cm. The patient did not have the wound measured at this time. The patient tolerated the procedure well. Dressings were applied consisting of Betadine soaked Adaptic 4x4 gauze, ABD pad, Kerlix and 3 rolls of 4-inch Adarsh wrap. I did not want to apply any sort of strong compression as we are unsure if there is some sort of DVT possibly at this time. Due to the patient failing oral antibiotic therapy and her left leg becoming significantly cellulitic at this time and the concern for a possible DVT the decision was made after discussing with Dr. Wolf, to go ahead and direct admit the patient to the floor for IV antibiotics and further evaluation. She was direct admitted through Dr. oWlf and placed on clindamycin and ciprofloxacin IV antibiotics. The patient had a venous ultrasound ordered which was to be performed first thing in the morning. The patient was in agreement on the plan to be placed in the hospital under direct admit for IV antibiotics for a couple days probably, and further evaluation. The patient is a smoker and this will perhaps be a challenge, but this will be likely good for her as well to be in the hospital keeping her leg up, and keeping blood sugars under control while she tries to get this a little bit better. The patient has no further questions or concerns and we will get her into the hospital under direct admit by Dr. Wolf and she was admitted to Room 115, and appropriate labs, etc. were ordered. We will follow up with her on the floor after being admitted, the next day. Jose Dean D.P.M. (Dictated/Not Signed) José Miguel Job#: [id number] MTDD
[2018-09-16] MEDS: PRAMIPEXOLE DI-HCL 0.5 MG TABLET PO SCH ×3 (09:00→16:43)
[2018-09-16] MEDS: LURASIDONE HCL (NF) 40 MG TABLET PO SCH (09:00)
--- NOTE | 2018-09-16 09:33 | CONSULTATION REPORT ---
DATE OF CONSULTATION: 09/15/2018 ADMITTING PHYSICIAN: Dr. Wolf. SUBJECTIVE: Donya Gaston is a 53-year-old female who was seen in the outpatient clinic yesterday on 09/14/18 by myself, and the patient was found to be having chills and overall was feeling quite fatigued and not feeling well. She has been on antibiotics for at least the last week and she recently got her leg caught in a metal screen door that ripped some skin off. The patient was on antibiotics to try and prevent any sort of infection. The patient presented yesterday with a very large swollen, warm and red left leg. The patient due to some systemic complaints as well was in agreement to my recommendation that we get her admitted into the hospital for IV antibiotics as she has failed conservative outpatient treatment of the leg with antibiotics so far. Because of failing oral antibiotics, she agreed to do so. The patient was direct-admitted under Dr. Wolf yesterday, who is the admitting physician. I was placed on consult and asked to come see the patient today. The patient was seen today and the patient denies any fevers, nausea, vomiting, shortness of breath or chest pain. She was having some nausea previously as well as some chills but she states that she only has had a couple chills last night but that is it. She otherwise states that she is feeling okay, and not really any different than yesterday. ALLERGIES: CEPHALEXIN GIVES HER HIVES, OXYCODONE GIVES HER ITCHINESS ON THE SKIN, AND STRAWBERRIES CAUSE A RASH. ACTIVE MEDICATIONS: The patient is on a large list of medications which can be found on her chart. Of note, she has been on Bactrim DS which was given to her by the ER recently. REVIEW OF SYSTEMS: See Subjective above. She does not admit to any other concerns throughout the body at this time. PHYSICAL EXAMINATION: General: The patient is alert, awake and oriented x3. Head: The patient is atraumatic, normocephalic. Neck: There is no tracheal deviation. Pertinent physical exam of the lower extremity: Vascular: Palpable DP and PT pulses, left foot. CLINICAL RESEARCH TECHNICIAN is less than 3 seconds to the toes, left foot. There is moderate edema still noted in the left lower extremity and the lower leg, however, it is much improved from yesterday. Dermatologic: There is still a large ulcer over the left lower lateral anterior leg. This has some granulation tissue in it. There is minor slough in the base of the wound, but it is very mild. There is still mild erythema noted around the edges of the wound as well as some warmth noted today. It should be noted that this is much better than previous yesterday. There is no purulence or malodor noted. There is no mokfo-bc-ofat. There is no fluctuance noted in any of the areas around the leg. Musculoskeletal: There is mild pain to palpation on the back of the calf, left lower leg. There is no fluctuance noted, left lower leg. There is some pain with palpation at the wound site. Again, there is mild pain with pressing on the back of the calf on the left leg. There is a history of a below-knee amputation on the right lower extremity. Neurologic: Light touch sensation is diminished to the toes, left foot. ASSESSMENT AND PLAN: 1. Left lower leg cellulitis. 2. Left venous insufficiency ulcer. 3. Left leg venous insufficiency. 4. Diabetes mellitus, type 2. The dressings were changed today and the wound evaluated. Overall, things appear to be improving on IV antibiotics. The patient overall seems to be feeling a little bit better as well. At this time it should be noted that the patient is a diabetic and also is a smoker, and during these couple days she will be on better blood sugar control as well as unable to be smoking. This will do a lot to help her wound as well. It should be noted that the swelling in her left lower leg is improved today and much less full and therefore we are doing better taking care of the wound for those reasons as well. Dressings were applied consisting of Betadine-soaked Adaptic 4x4 gauze, ABD pad, Kerlix and 2 layers of 4-inch Adarsh wrap. We will continue doing daily dressing changes while she is in the hospital. We will plan on having her likely in the hospital for 1 or 2 more days and will likely be discharged on oral antibiotics, likely clindamycin and ciprofloxacin to continue getting this under control for an additional week once she is discharged. This was discussed with Dr. Wolf today. The patient has no further questions or concerns and we will see her again tomorrow. Upon discharge, she will need to see me in the outpatient clinic. We will figure out a time before she leaves. Jose Dean D.P.M. (Dictated/Not Signed) José Miguel Job#: [id number]
[2018-09-16] MEDS: L. ACIDOPHILUS/LACTOBAC SPOR 1 EACH CAP PO SCH (11:11)
[2018-09-16] MEDS: CIPROFLOXACIN IN 5 % DEXTROSE 400 MG/200 ML BAG IV SCH ×2 (12:33→21:15)
[2018-09-16] MEDS: lamoTRIgine 100 MG TABLET PO SCH ×2 (12:36→21:01)
[2018-09-16] MEDS: POLYETHYLENE GLYCOL 3350 17 GM POWD.PACK PO SCH (12:41)
--- NOTE | 2018-09-16 12:42 | Inpatient Progress Note ---
DATE OF VISIT: 09/16/2018 NOTE: The patient was seen on inpatient rounds this morning. SUBJECTIVE: Donya Gaston is a 53-year-old female who was direct admitted into the hospital on 09/14/[address] Wolf after being seen by myself for a cellulitic left lower extremity with a recent new wound. The patient was placed on IV antibiotics and has been closely monitored between that day and today for improvement. The patient states that overall she is feeling more energy and is feeling great. She denies any fevers, chills, nausea, vomiting, shortness of breath or chest pain. Overall, she is doing well. She is hopeful to go home today if possible. OBJECTIVE: Vascular: Palpable DP and PT pulses, left foot. Capillary refill time less than 3 seconds to the toes, left foot. There is mild to moderate edema still noted in the left lower extremity. Dermatologic: There is still an open lesion noted on the left anterior lower leg measuring 10.5 x 2.0 x 0.1 cm deep. The skin flap has tacked down nicely and has a little bit of area that is necrotic that will eventually come off on its own. There is no purulence or malodor at this time. There is, however, notable slight erythema and warmth still noted on the edges of the wound on the anterolateral leg area of the left lower extremity. There are no other open lesions or concerning areas, left leg. Musculoskeletal: There is history of a below-knee amputation of the right lower extremity. The patient has no pain with calf squeeze today versus yesterday she did have some pain. She doesnt have any other pain on palpation noted. There are no other gross abnormalities noted on the left lower extremity of note today. Neurologic: Light touch sensation is diminished/absent to the toes, left foot. ASSESSMENT AND PLAN: 1. Left lower extremity cellulitis. 2. Left lower extremity venous insufficiency ulcer. 3. Left leg venous insufficiency. 4. Diabetes mellitus with polyneuropathy. The patient had dressings changed today and the wound was cleansed with normal saline and then dressed again after measuring it, with Betadine soaked Adaptic 4x4 gauze, Kerlix and 2 layers of 4-inch Adarsh wrap. The patient is being evaluated by Physical Therapy and I am told is found to be at baseline with her ability to get around. The patient seems to be doing well with that respect. Due to the fact that the wound is still fighting some infection based on clinical signs, I believe that she will need longer than just 2 or 3 days of IV antibiotics. I believe that the idea of considering usp facility here is a great option for her to give her a better chance at healing this wound and eliminating the cellulitis. I will discuss this further with Dr. Wolf, the admitting physician. The patient had no further questions or concerns at this time. We will plan on seeing her again tomorrow to see how she is doing. She is to continue her IV antibiotics as planned and I will also discuss with Dr. Wolf making sure that she is on some sort of DVT prophylaxis. She mentioned that she was on Lovenox but it was causing her platelets to decrease so she was taken off and put on SCDs. I am worried that SCDs are likely not happening as she has the right lower extremity that has been amputated below the knee as well as they are likely not using that on the left leg where the wound is. Denice AndersonP.M. (Dictated/Not Signed) José Miguel Job#: [id number] MTDD
[2018-09-16] MEDS: hydrOXYzine HCL 25 MG TABLET PO SCH (21:00)
[2018-09-16] MEDS: SIMVASTATIN 20 MG TABLET PO SCH (21:01)
[2018-09-16] MEDS: traZODone HCL 50 MG TABLET PO SCH (21:01)
[2018-09-16] MEDS: INSULIN GLARGINE,HUM.REC.ANLOG 100 UNIT/ML PEN.INJCTR SQ SCH (21:08)
[2018-09-17] MEDS: CLINDAMYCIN PHOSPHATE/D5W 600 MG/50 ML PIGGYBACK IV SCH ×2 (02:14→11:53)
[2018-09-17] MEDS: LEVOTHYROXINE SODIUM 50 MCG TABLET PO SCH (06:22)
[2018-09-17] MEDS: FUROSEMIDE 40 MG TABLET PO SCH (06:23)
[2018-09-17] MEDS: PANTOPRAZOLE SODIUM 40 MG TABLET.DR PO SCH (06:23)
[2018-09-17] MEDS: INSULIN LISPRO 100 UNIT/ML 3ML VIAL SQ SCH ×2 (07:26→07:27)
--- NOTE | 2018-09-17 07:52 | Discharge Summary ---
Discharge Summary - Discharge [place] Admission Date: 09/14/18 Discharge Date: 09/17/18 Discharge To: Other (SNF) History of Present Illness: Patient was seen in follow up for a L leg wound by Dr. Dean today. She had gotten an injury several weeks before. She had been doing well until this past week when she felt poorly and having chills. DR. Dean felt her leg was looking worse despite outpatient oral antibiotics. She will be admitted for IV antibiotics. Patient had a R BKA several years ago Condition at Discharge: Stable Home Medications: Ambulatory Orders Medication Instructions Recorded Aspirin [Aspir 81] 81 mg PO DAILY u2 05/15/15 Albuterol Sulfate [Proair 90 mcg IH Q4 PRN 03/26/18 Respiclick] Fluoxetine HCl [Prozac] 40 mg PO BID 03/26/18 Hydroxyzine HCl 25 mg PO HS 03/26/18 Lamotrigine [Lamictal] 200 mg PO BID 03/26/18 Ondansetron HCl Rapdis [Zofran ODT] 4 mg PO Q6H PRN 03/26/18 Pantoprazole Sodium 40 mg PO BID 03/26/18 Pramipexole Di-HCl [Mirapex] 0.5 mg PO TID 03/26/18 Simvastatin 20 mg PO HS 03/26/18 Trazodone HCl [Desyrel] 300 mg PO HS 03/26/18 Insulin Aspart [Novolog Flexpen] 50 unit SQ TID 09/14/18 Consultations this Visit: Other (Podiatry) Procedures this Visit: None Allergies/Adverse Reactions: Allergies Allergy/AdvReac Type Severity Reaction Status Date / Time cephalexin monohydrate Allergy Intermediate Hives Verified 09/06/18 15:27 [From Keflex] oxycodone HCl [From Percocet] Allergy Intermediate Itchy Skin Verified 09/06/18 15:27 strawberry AdvReac Rash Verified 09/14/18 19:03 Patient Problems: Current Active Problems Problem Status Onset Cellulitis of left lower extremity Acute Discharge Summary: Patient responded fairly well to IV clindamycin and cipro with podiatry following leg wound and doing dressing changes. WBC remained normal. Platelet count dropped on lovenox so it was discontinued. Insulin titrated as BS tolerated. AT discharge, still working to get back to home doses. Due to patient noncompliance with not smoking and controlling her BS and the fact this is the last foot she has, it was elected to put her in skilled therapy to complete 10 days of IV antibiotics, get therapy to get stronger, and to have nursing help with DM control. Hospital Course: Discharge dx: Cellulitis LLE. remote h/o R BKA. uncontrolled DM. Smoker. bipolar. CHF. COPD
[2018-09-17 08:14] VITALS: BP 137/59
[2018-09-17] MEDS: L. ACIDOPHILUS/LACTOBAC SPOR 1 EACH CAP PO SCH (08:49)
[2018-09-17] MEDS: lamoTRIgine 100 MG TABLET PO SCH (08:50)
[2018-09-17] MEDS: ASPIRIN EC 81 MG TABLET.DR PO SCH (08:50)
[2018-09-17] MEDS: LURASIDONE HCL (NF) 40 MG TABLET PO SCH (08:51)
[2018-09-17] MEDS: PRAMIPEXOLE DI-HCL 0.5 MG TABLET PO SCH (08:51)
[2018-09-17] MEDS: FLUoxetine HCL 10 MG CAPSULE PO SCH (08:51)
[2018-09-17] MEDS: CIPROFLOXACIN IN 5 % DEXTROSE 400 MG/200 ML BAG IV SCH (08:52)
[2018-09-17 08:55] LABS: eGFR (Non-African) > 60
[2018-09-17] MEDS: ENOXAPARIN SODIUM 40 MG/0.4 ML DISP.SYRIN SQ SCH (09:22)
[2018-09-17] MEDS: traMADol HCL 50 MG TABLET PO PRN (10:15)
[2018-09-17] MEDS: POLYETHYLENE GLYCOL 3350 17 GM POWD.PACK PO SCH (10:57)
--- NOTE | 2018-09-17 13:17 | Diagnostic Imaging Report ---
ANDREW MCMILLAN [facility] [address] [facility] [address] [place], [place]. [address] Report Submission Date: Sep 17, 2018 10:05:46 AM CDT Patient Study Name: MAURY TONEY Date: Sep 17, 2018 9:28:35 AM CDT Modality Type: DX Gender: F Description: CHEST 2VIEW : 63 Institution: [facility] Physician: ANDREW MCMLILAN Examination: PA and lateral chest. History: Evaluate lung wyatt. Comparison exam: 07 November 2017 Findings: PA and lateral views of the chest demonstrates a prominent cardiac and mediastinal silhouette. Generalized interstitial fullness. Increased linear infiltrates involving the lung bases, right greater than left. Flattening of the diaphragm on lateral view. Articular degenerative changes. Impression: Right greater than left lung base linear infiltrates. No definite effusion. Mild cardiomegaly. Electronically signed on Sep 17, 2018 10:05:46 AM CDT by: Cordell NAVARRO
[2018-09-17] MEDS ORDERED: FLUTICASONE/SALMETEROL 250-50 INHALER IH SCH (21:00)
== END 2018-09-17 11:40 | DRG 603 ==
LOC: POD 14:57 → SOUTH 16:20
PROVIDERS: ADMIT Family Medicine; ATTEND Family Medicine
DX: L03.116 Cellulitis of left lower limb (principal); L97.921 Non-pressure chronic ulcer of unspecified part of left lower leg limited to breakdown of skin; F31.9 Bipolar disorder, unspecified; I50.9 Heart failure, unspecified; J44.9 Chronic obstructive pulmonary disease, unspecified; I11.0 Hypertensive heart disease with heart failure; E78.5 Hyperlipidemia, unspecified; K08.109 Complete loss of teeth, unspecified cause, unspecified class; F17.210 Nicotine dependence, cigarettes, uncomplicated; I87.2 Venous insufficiency (chronic) (peripheral); E11.42 Type 2 diabetes mellitus with diabetic polyneuropathy; K21.9 Gastro-esophageal reflux disease without esophagitis; E53.8 Deficiency of other specified B group vitamins; D64.9 Anemia, unspecified; F41.9 Anxiety disorder, unspecified; F32.9 Major depressive disorder, single episode, unspecified; G89.29 Other chronic pain; M54.5 Low back pain; M19.90 Unspecified osteoarthritis, unspecified site; Z79.82 Long term (current) use of aspirin; Z79.899 Other long term (current) drug therapy; Z79.4 Long term (current) use of insulin; Z89.511 Acquired absence of right leg below knee; Z88.1 Allergy status to other antibiotic agents; Z88.5 Allergy status to narcotic agent; Z91.018 Allergy to other foods; Z91.19 Patient's noncompliance with other medical treatment and regimen; Z90.49 Acquired absence of other specified parts of digestive tract; Z87.01 Personal history of pneumonia (recurrent); Z79.890 Hormone replacement therapy
CPT/HCPCS: 71046; 80048; 80053; 85025; 85027; 87040; 93971; 97161; 97165; 97535; A9270; J0744; J1650; J1815; J7030; 99221; A4554; S1016

== ENCOUNTER 2018-09-30 10:10 | Outpatient (CLI) | payer MEDICARE, OTHER ==
[2018-09-24 10:07] VITALS: BP 154/64
--- NOTE | 2018-09-30 11:38 | Diagnostic Imaging Report ---
ROBERT ALVARES [facility] [address] [facility] [address] [address] Report Submission Date: Sep 30, 2018 11:11:37 AM CDT Patient Study Name: MAURY TONEY Date: Sep 30, 2018 10:08:10 AM CDT Modality Type: DX Gender: F Description: CHEST 2VIEW : 63 Institution: [facility] Physician: ROBERT ALVARES Exam: Chest two views. History: Pneumonia. The examination is compared to study dated September 23, 2018. Patchy perihilar and lower lobe infiltrates do persist. No pleural effusions are seen. Heart and mediastinal contour stable with atherosclerotic plaques seen in the aorta. Degenerative changes in the thoracic spine are noted. Impression: No interval change. Electronically signed on Sep 30, 2018 11:11:37 AM CDT by: Iftikhar NAVARRO
== END 2018-09-30 10:12 ==
LOC: RAD 10:10
PROVIDERS: ATTEND Family Medicine
DX: J18.1 Lobar pneumonia, unspecified organism (principal)
CPT/HCPCS: 71046

== ENCOUNTER 2018-10-08 08:09 | Outpatient (CLI) | payer MEDICARE, OTHER ==
[2018-09-24 10:07] VITALS: BP 154/64
--- NOTE | 2018-10-14 09:56 | OP Clinic Progress Note ---
DATE OF VISIT: 10/08/2018 SUBJECTIVE: Donya Gaston is a 53-year-old female presented to clinic today for followup of a laceration to the left lower extremity and venous insufficiency. The patient is also diabetic and here for followup to make sure that she is continuing to heal well. I have not seen her in a couple weeks now due to scheduling issues as well, but the patient is finally here after [facility] where I was seeing her there as well. The patient does not admit to any issues at this time and presents for wound care followup. The patient does not admit to any fevers, chills, nausea, vomiting, shortness of breath or chest pain. OBJECTIVE: Vitals: Temperature 98.6 degrees Fahrenheit, heart rate 77, respiration rate 18, blood pressure 126/60. O2 saturation is 90% on room air. Vascular: Palpable DP and PT pulses, left foot. Capillary refill time is less than 3 seconds to the toes of the left foot. There is mild edema noted in the left lower extremity. Dermatologic: There is still an open wound where the laceration took place on the left anterolateral aspect of the left lower leg. This has improved greatly since her last visit. There was some mild eschar that was unstable and removed easily. There is a very small pinpoint superficial lesion proximally where the wound was and then a large skin island connecting to a small open area measuring today at 0.9 x 3.1 x 0.1 cm deep. There is no erythema or purulence or malodor or abnormal drainage noted. There is some yellow slough noted in the base of the wound. There are no other gross abnormalities noted, left foot. Musculoskeletal: There is no pain with debridement today. There are no other gross abnormalities noted, left foot. There is history of right below knee amputation. Neurologic: Light touch sensation is diminished to the toes, left foot. The patient did not really have any pain with debridement today, left leg. ASSESSMENT AND PLAN: 1. Diabetes mellitus type 2. 2. Laceration of the left lower extremity, subsequent encounter. 3. Venous insufficiency of the left lower extremity, I87.2. PROCEDURE #1: Sharp debridement down to and including the subcutaneous tissue layer less than 20 square cm with a #15 blade was performed today. The site was then flushed with copious amount of normal saline and dressed with Betadine soaked Adaptic, 4x4 gauze and Kerlix. PROCEDURE #2: Four layer compression wrap was then applied to the left lower extremity per normal procedure. The patient tolerated these procedures well. We will continue to keep compression as this is healing very well. We will have the patient be seen on Friday for home health and then we will resume Friday visits with [place] and Friday home health as she was seen abnormally on a this week. That is why we will not have home health see her tomorrow. They can wait until Friday. The patient has no further questions and we will see her a week from yesterday in outpatient clinic for followup of wound care. She is doing great. Erlinda Anderson.P.M.(Dictated/not signed) /Accutype [id number] /mab MTDD
== END 2018-10-08 08:40 ==
LOC: POD 08:09
PROVIDERS: ATTEND Podiatrist Foot & Ankle Surgery
DX: S81.812D Laceration without foreign body, left lower leg, subsequent encounter (principal); E11.9 Type 2 diabetes mellitus without complications; I87.2 Venous insufficiency (chronic) (peripheral)
CPT/HCPCS: 11042; 29581; 99213; G0463; A4554

== ENCOUNTER 2018-10-15 10:24 | Outpatient (CLI) | payer MEDICARE, OTHER ==
[2018-09-24 10:07] VITALS: BP 154/64
--- NOTE | 2018-10-21 08:50 | OP Clinic Progress Note ---
DATE OF VISIT: 10/15/2018 SUBJECTIVE: Donya Gaston is a 53-year-old diabetic female presenting to the clinic today for followup of a left lower extremity laceration/ulcer that we have been treating for awhile now. The patient presents today with dressings that are bunched up down closer near the ankle. She states that she is having a little bit of pain in her left lower leg. She does not admit to any fevers, chills, nausea, vomiting, shortness of breath or chest pain at this time. The patient is having home health care during dressing changes at home on Mondays and Fridays generally but due to issues this week I do not believe it was done yesterday but she presented today for followup. OBJECTIVE: Vitals: Temperature 98.7 degrees Fahrenheit, heart rate 77, respiration rate 20, blood pressure 107/48. O2 saturation is 90% on room air. Vascular: Palpable DP and PT pulses, left foot. Capillary refill time is less than 3 seconds to the toes of the left foot. There is severe edema noted in the left lower leg proximally as well as moderate edema in the ankle and foot. Dermatologic: There is erythema noted but no significant warmth at all in the left lower leg proximally. The left lower leg anterolateral ulcer is noted to not have any erythema around it at all or warmth. The wound base is fibrogranular and was debrided to a bleeding, intact granular base. There is mild moderately stable eschar around the edges which was left alone today. The wound was measured today to be 2.5 x 0.7 x 0.1 cm deep. This is greatly improved from last week when it was 3.1 x 0.9 x 0.1 cm deep. There are no other skin lesions or concerning areas in the left lower extremity. Musculoskeletal: There is no pain with debridement today. There were no other gross abnormalities noted in the left foot. There is some mild pain on palpation and with calf squeeze noted in the left lower leg. There is also notable history of right below knee amputation. Neurologic: Light touch sensation is diminished to the toes, left foot. ASSESSMENT AND PLAN: 1. Diabetes mellitus type 2. 2. Laceration of the left lower extremity, subsequent encounter. 3. Venous insufficiency of the left lower extremity (acutely severely swollen). 4. Left leg pain and erythema, proximal lower leg. PROCEDURE #1: Sharp debridement of the left leg anterolateral ulcer was performed down to and including the subcutaneous tissue layer with a #15 blade, less than 20 sq cm. Bleeding was controlled with pressure. The site was rinsed with a copious amount of normal saline, dried and Betadine soaked Adaptic, 4 x 4 gauze, Kerlix and two layers of 4-inch Adarsh wrap were applied. I am unwilling to do four-layer compression wraps at this time with the concern for possible DVT. Prescription for venous ultrasound for the left lower extremity was recommended to be done today. The patient refuses to do it today and is willing to do it tomorrow. We are unable to do it here as we do not have the right staffing to do it here tomorrow and therefore a prescription is being sent to [facility] where they are saying they have plenty of openings tomorrow to do the ultrasound there of the left lower extremity. I spoke with Dr. Barnard on the phone today as I will be out of town tomorrow and asked him to look for results in the morning for this Doppler and asked that he give clearance for four-layer compression wraps to be applied by home health care that afternoon as long as there is no DVT. Dr. Barnard will make that call tomorrow. He is willing, and agrees to do so happily. The patient has no further questions or concerns and knows that I will not be here next week and if there are any issues she needs to see her primary care doctor, Dr. aBrnard. The patient will continue to have Friday and Friday dressing changes by home health and we will need to add on a Friday home health care dressing change as well next week. I would still like home health to see her this Friday as well and hopefully reapply four-layer compression wraps as long as she gets clearance from Dr. Barnard. The patient has no further questions and we will see her for a return to clinic visit in two weeks from yesterday, which will be on Friday. Erlinda Anderson.P.M.(Dictated/not signed) /Accutype [id number] /mab MTDErlinda
== END 2018-10-15 10:45 ==
LOC: POD 10:24
PROVIDERS: ATTEND Podiatrist Foot & Ankle Surgery
DX: E11.9 Type 2 diabetes mellitus without complications (principal); I87.2 Venous insufficiency (chronic) (peripheral); S81.812D Laceration without foreign body, left lower leg, subsequent encounter; X58.XXXD Exposure to other specified factors, subsequent encounter
CPT/HCPCS: 11042; 99212; G0463; A4554